=== PATIENT | male | born 1970 | race Caucasian/White ===

== ENCOUNTER → 2018-04-14 | Outpatient (CLI) | payer BC ==
[2018-04-14] MEDS: CATHETER FLUSH 10 ML SYR IV PRN ×2 (11:54→11:55)
--- NOTE | 2018-04-14 19:09 | Diagnostic Imaging Report ---
INDICATION: Right upper quadrant pain. TECHNIQUE: Patient was administered 5.4 mCi technetium 99m Choletec and imaging over the abdomen was performed. At one hour, patient ingested 8 ounces of Ensure and a gallbladder ejection fraction was calculated. FINDINGS: There is homogeneous uptake of activity throughout the liver. Prompt excretion of activity into the gallbladder and common duct is seen. There is normal passage of activity into the small bowel. Gallbladder ejection fraction is normal at 58%. IMPRESSION: Normal HIDA scan and gallbladder ejection fraction. Dictated by: Dictated on workstation # [id number]
== END ==
LOC: CARD 11:35 → EDUNIT# 12:00
PROVIDERS: ATTEND Surgery
DX: R10.11 Right upper quadrant pain (principal)
CPT/HCPCS: 78227

== ENCOUNTER 2018-05-18 15:52 | Outpatient (CLI) | payer BC ==
[~2018-05-18] VITALS: Ht 165.1 cm; Wt 108.0 kg
[2018-05-19] MEDS ORDERED: LEVO25TA5 PO (08:45)
[2018-05-19] MEDS ORDERED: NF-ACI30T PO (08:45)
[2018-05-19] MEDS ORDERED: LISI1TAB8 PO (08:45)
[2018-05-19] MEDS ORDERED: MELO15TA39 PO (08:45)
== END 2018-05-18 16:20 | disposition home or self-care (01) ==
LOC: PREOP 15:52
PROVIDERS: ATTEND Surgery
DX: Z01.818 Encounter for other preprocedural examination (principal)

== ENCOUNTER 2018-05-19 09:02 | Day surgery (SDC) | payer BC ==
[~2018-05-19] VITALS: Ht 165.1 cm; Wt 108.0 kg
[2018-05-19] VITALS (7 sets, daily range): BP systolic 116–128; BP diastolic 71–100
[~2018-05-19 09:02] MED LIST: LEVO25TA5 PO; LISI1TAB8 PO; MELO15TA39 PO; NF-ACI30T PO
[2018-05-19] MEDS ORDERED: ceFAZolin 1,000 MG/10 ML (ANCEF) VIAL ONE (09:18)
[2018-05-19] MEDS ORDERED: NS (IVPB) 50 ML ONE (09:19)
--- NOTE | 2018-05-19 09:29 | Progress Note-Pre Operative ---
Pre-Operative Progress Note H&P Reviewed The H&P was reviewed, patient examined and no changes noted. Date Seen by Provider: May 19, 2018 Time Seen by Provider: 09:20 Date H&P Reviewed: May 19, 2018 Time H&P Reviewed: :20 Pre-Operative Diagnosis: perianal pain/mass/drainage JODY GONZALEZ MD May 19, 2018 9:29 am
[2018-05-19] MEDS ORDERED: ACETAMINOPHEN 325 MG TABLET PO PRN (09:30)
[2018-05-19] MEDS ORDERED: morphine INJ 10 MG/ML 1ML (SYR OR VIAL) IVP PRN (09:30)
[2018-05-19] MEDS ORDERED: ONDANSETRON 4 MG/2 ML (SDV) Z0FRAN IVP PRN ×2 (09:30→13:30)
--- OUTSIDE RECORDS SUMMARY | 2018-05-19 09:36 | XMS REPORT ---
Author Author BIRGIT ROSARIO [facility] Address [address] [place] [address] Care Team Providers Care Electrolysis Needle Operator Name Role Phone JOSSIE ROSARIOTA Unavailable PROBLEMS Type Condition ICD9-CM Code [id number] Code Onset Dates Condition Status SNOMED Code Problem Essential hypertension I10 Active 76847428 Problem Pre-diabetes R73.09 Active 595910810 Problem Gastroesophageal reflux disease without esophagitis K21.9 Active 765991566 Problem Acquired hypothyroidism E03.9 Active 338193181 ALLERGIES No Information ENCOUNTERS Encounter Location Date Diagnosis [facility] [address] [id number] May, [facility] [address] [address] Mar, [facility] [address] [address] Mar, Pre-diabetes R73.09 and Essential hypertension I10 [facility] [address] [address] Mar, Anal fissure K60.2 ; Pre-diabetes R73.09 ; Acquired hypothyroidism E03.9 ; Gastroesophageal reflux disease without esophagitis K21.9 and Essential hypertension I10 [facility] [address] [id number] Nov, Dental examination Z01.20 [facility] [address] [address] Oct, Acute sinusitis, recurrence not specified, unspecified location J01.90 ; Cough R05 ; Nasal sinus congestion R09.81 ; Seasonal allergic rhinitis, unspecified trigger J30.2 and Post-nasal drainage R09.82 [facility] [id number] [place] [address]9- 0941 13 Sep, 2017 Acquired hypothyroidism E03.9 ; Pre-diabetes R73.09 ; Essential hypertension I10 ; Gastroesophageal reflux disease without esophagitis K21.9 and Long-term use of high-risk medication Z79.899 [facility] [address] [address] Jul, Viral gastroenteritis A08.4 [facility] [address] [id number] May, Encounter for dental examination Z01.20 [facility] [address] [address] 17 Dec, 2016 Essential hypertension I10 and Acquired hypothyroidism E03.9 [facility] [address] [address] December, Acquired hypothyroidism E03.9 ; General medical exam Z00.00 and Essential hypertension I10 [facility] [address] [address] Nov, Acquired hypothyroidism E03.9 ; Pre-diabetes R73.09 ; Essential hypertension I10 ; Skin lesions L98.9 and General medical exam Z00.00 [facility] [id number] [place] [id number] Oct, Encounter for dental examination Z01.20 [facility] [address] [address]- [address] Oct, Bronchitis J40 [facility] [address] [address] Oct, Sore throat J02.9 and Strep pharyngitis J02.0 [facility] [address] [address] Aug, [facility] [address] [address] Jul, Acquired hypothyroidism E03.9 ; Pre-diabetes R73.09 ; Essential hypertension I10 and Vertigo R42 [facility] [id number] [place] [address] Jun, Vertigo R42 [facility] [address] [id number] 28 Apr, 2016 Dental examination Z01.20 [facility] [address] [address] 13 Apr, 2016 Acquired hypothyroidism E03.9 ; Pre-diabetes R73.09 and Fatigue, unspecified type R53.83 [place] [address] [address] Mar, [facility] [address] [address]- [address] Mar, Dysthymia F34.1 [facility] [address] [address]- 6[address] Feb, Rectal bleeding K62.5 and Dysthymia F34.1 [facility] [address] 6[address]- 28[address] December, Acquired hypothyroidism E03.9 ; Pre-diabetes R73.09 ; Gastroesophageal reflux disease without esophagitis K21.9 and Elevated blood pressure I10 [facility] [id number] [place] [address] 26936- 5425 December, Acute labyrinthitis, unspecified laterality H83.09 [facility] [address] [address]- [address] December, Hypothyroidism 244.9 [facility] [address] [id number] 17 Oct, 2015 Encounter for dental examination Z01.20 [facility] [address] 6[address]- [address]64 Sep, [facility] [address] [address]- 25[address] Aug, [facility] [address] [place] [address] 992023- 3917 Jun, [facility] [id number] [place] [address] [id number] Jun, Dental examination V72.2 [facility] [id number] [place] [address] 66615- 5446 Jun, Hypothyroidism 244.9 [facility] [id number] [place] [address] 91226- 2926 May, Hypothyroidism 244.9 [facility] [address] [id number] May, Encounter for dental examination Z01.20 [facility] [id number] [place] [address] 285973- 2461 Mar, Hypothyroidism 244.9 and Prediabetes 790.29 [facility] [id number] [place] [address] [id number] Mar, Dental examination V72.2 [facility] [id number] [place] [address] [id number] Mar, Dental examination V72.2 [facility] [id number] [place] [address] 90693- 6567 Mar, [facility] [id number] [place] [address] 23552- 6737 Mar, [facility] [id number] [place] [address] 758423- 4941 Mar, [facility] [id number] [place] [address] 723782- 1169 Feb, Hypothyroidism 244.9 [facility] [id number] [place] [address] 027932- 1399 Feb, [facility] [id number] [place] [address] 85040- 6735 Feb, Hypothyroidism 244.9 and Other malaise and fatigue 780.79 [facility] [id number] [place] [address] 99390- 4110 Feb, [facility] [id number] [place] [address] 67390- 5845 Feb, Pre-diabetes 790.29 ; Hypothyroidism 244.9 ; Family history of cardiac disorder V17.49 and Elevated blood pressure 796.2 [facility] [id number] [place] [address] 65704- 0032 Feb, [facility] [id number] [place] [address] [id number] Jan, Dental examination V72.2 [facility] [id number] [place] [address] 06747- 3105 Nov, [facility] [id number] [place] [address] 90176- 0708 Nov, [facility] [id number] [place] [address] 98234- 5363 Oct, [facility] [id number] [place] [address] 86420- 4570 Oct, [facility] [id number] [place] [address] 35237- 6517 Aug, [facility] [id number] [place] [address] 53998- 1999 Aug, [facility] [id number] [place] [address] 21376- 6522 Aug, [facility] [id number] [place] [address] 89077- 4562 Aug, [facility] [id number] [place] [address] 90036- 7650 Jun, [facility] [id number] [place] [address] 27727- 8564 Jun, [facility] [address] [id number] [place] [address]- 1267 Apr, [facility] [address] [id number] [place] [address]- 6925 Apr, [facility] [address] [id number] [place] [address]- 0066 Mar, [facility] [address] [id number] [place] [address]- 5[address] Mar, [facility] [address] [id number] [place] [address]- 4097 December, [facility] [address] [id number] [place] [address]- 7915 December, [facility] [address] [facility] [id number] [place] [address]- 9325 December, [facility] [address] [facility] [id number], [place] [address] 2705 December, [facility] [address] [facility] [id number] [place] [address]- 3796 December, [facility] [address] [facility] [id number], [place] [address]- 7637 December, [facility] [address] [facility] [id number], [place] [address]- 3547 Sep, [facility] [address] [id number], [place] [address]- 6749 Jul, [facility] [address] [facility] [id number], [place] [address]- 6076 Jul, [facility] [address] [facility] [id number], [place] [address] 8485 Jul, [facility] [address] [facility] [id number], [place] [address]- 1145 Jul, IMMUNIZATIONS No Known Immunizations SOCIAL HISTORY Never Assessed REASON FOR VISIT Returned call PLAN OF CARE VITAL SIGNS MEDICATIONS Unknown Medications RESULTS No Results PROCEDURES No Known procedures INSTRUCTIONS MEDICATIONS ADMINISTERED No Known Medications MEDICAL (GENERAL) HISTORY Type Description Date Medical History Elevated Blood Pressure Medical History Hypothyroidism Medical History Prediabetes Medical History Esophageal Reflux Medical History Colonosocpy Kido
--- OUTSIDE RECORDS SUMMARY | 2018-05-19 09:37 | XMS REPORT ---
Author Author HUSSEIN DILALO [facility] Address [address] [place] [address] Phone Unavailable Care Team Providers Care Chemical Processing Supervisor Name Role Phone HUSSEIN DIALLO Unavailable Unavailable PROBLEMS Type Condition ICD9-CM Code NBH78-ZS Code Onset Dates Condition Status SNOMED Code Problem Essential hypertension I10 Active 00564515 Problem Pre-diabetes R73.09 Active 034147537 Problem Gastroesophageal reflux disease without esophagitis K21.9 Active 034879064 Problem Acquired hypothyroidism E03.9 Active 073615748 ALLERGIES No Known Allergies ENCOUNTERS Encounter Location Date Diagnosis [facility] [address] [id number] May, [facility] [address] [id number] Nov, Dental examination Z01.20 [facility] [id number] [place] [address] Oct, Acute sinusitis, recurrence not specified, unspecified location J01.90 ; Cough R05 ; Nasal sinus congestion R09.81 ; Seasonal allergic rhinitis, unspecified trigger J30.2 and Post-nasal drainage R09.82 [facility] [id number] [place] [address] 03000- 0827 Sep, Acquired hypothyroidism E03.9 ; Pre-diabetes R73.09 ; Essential hypertension I10 ; Gastroesophageal reflux disease without esophagitis K21.9 and Long-term use of high-risk medication Z79.899 [facility] [id number] [place] [address]608 Jul, Viral gastroenteritis A08.4 [facility] [id number] [place] [address] [id number] May, Encounter for dental examination Z01.20 [facility] [id number] [place] [address] 66216- 8974 17 Dec, 2016 Essential hypertension I10 and Acquired hypothyroidism E03.9 [facility] [address] [address]- 8215 December, Acquired hypothyroidism E03.9 ; General medical exam Z00.00 and Essential hypertension I10 [place] [address] [address]- [address]39 Nov, Acquired hypothyroidism E03.9 ; Pre-diabetes R73.09 ; Essential hypertension I10 ; Skin lesions L98.9 and General medical exam Z00.00 [facility] [address] [id number] Oct, Encounter for dental examination Z01.20 [facility] [id number] [place] [address] 21288- 6939 08 Oct, 2016 Bronchitis J40 [facility] [address] [address]393 Oct, Sore throat J02.9 and Strep pharyngitis J02.0 [facility] [id number] [place] [address] 93429- 8875 Aug, [facility] [id number] [place] [address] 63192- 0056 Jul, Acquired hypothyroidism E03.9 ; Pre-diabetes R73.09 ; Essential hypertension I10 and Vertigo R42 [facility] [id number] [place] [address]177 -4720 Jun, Vertigo R42 [facility] [id number] [place] [address] [id number] Apr, Dental examination Z01.20 [facility] [id number] [place] [address] 22039- 0182 13 Apr, 2016 Acquired hypothyroidism E03.9 ; Pre-diabetes R73.09 and Fatigue, unspecified type R53.83 [facility] [id number] [place] [address] 04630- 0723 Mar, [place] [address] [address]50- 8738 Mar, Dysthymia F34.1 [place] [id number] [place] [address] 78110- 6064 Feb, Rectal bleeding K62.5 and Dysthymia F34.1 [place] [address] 32003- 6027 December, Acquired hypothyroidism E03.9 ; Pre-diabetes R73.09 ; Gastroesophageal reflux disease without esophagitis K21.9 and Elevated blood pressure I10 [place] [address] 14580- 9010 December, Acute labyrinthitis, unspecified laterality H83.09 [place] [address] 18517- 2130 December, Hypothyroidism 244.9 [facility] [address] [id number] Oct, Encounter for dental examination Z01.20 [place] [id number] [place] [address] 20095- 5568 Sep, [place] [id number] [place] [address] 57383- 4602 Aug, [place] [id number] [place] [address] 85439- 2288 Jun, [facility] [address] [id number] Jun, Dental examination V72.2 [place] [address] 33893- 9806 Jun, Hypothyroidism 244.9 [facility] [id number] [place] [address] 44655- 0354 May, Hypothyroidism 244.9 [facility] [address] [place] [address] [id number] May, Encounter for dental examination Z01.20 [facility] [address] 63542- 0287 Mar, Hypothyroidism 244.9 and Prediabetes 790.29 [facility] [address] [place] [address] [id number] Mar, Dental examination V72.2 [facility] [id number] [place] [address] [id number] Mar, Dental examination V72.2 [facility] [address] 74794- 2246 Mar, [facility] [id number] [place] [address] 83047- 6813 Mar, [facility] [id number] [place] [address] 14739- 8040 Mar, [facility] [id number] [place] [address] 70181- 4668 Feb, Hypothyroidism 244.9 [facility] [id number] [place] [address] 41503- 6163 Feb, [facility] [id number] [place] [address] 87887- 5495 Feb, Hypothyroidism 244.9 and Other malaise and fatigue 780.79 [facility] [id number] [place] [address] 78810- 8175 Feb, [facility] [id number] [place] [address] 69736- 6640 Feb, Pre-diabetes 790.29 ; Hypothyroidism 244.9 ; Family history of cardiac disorder V17.49 and Elevated blood pressure 796.2 [facility] [address] [place] [address] 60048- 0316 Feb, [facility] [id number] [place] [address] [place] [id number] Jan, Dental examination V72.2 [facility] [address] [id number] [place] [address]- 7559 Nov, [facility] [place] [facility] [address] [id number] [place] [address]- 3643 Nov, [facility] [place] [facility] [address] [id number] [place] [address]- 9716 Oct, [facility] [place] [facility] [address] [id number] [place] [address]- 9028 Oct, [facility] [place] [facility] [address] [id number] [place] [address]- 4586 Aug, [facility] [place] [facility] [address] [id number] [place] [address]- 6935 Aug, [facility] [address] [id number] [place] 6964 Aug, [facility] [place] [facility] [address] [id number], [place] [address]- 5791 Aug, [facility] [place] [facility] [address] [id number] [place] [address]- 9977 Jun, [facility] [place] [facility] [address] [id number][place]- 5878 Jun, [facility] [place] [facility] [address] [id number] [place] [address]- 4206 Apr, [facility] [place] [facility] [address] [id number], [place] [address]- 7716 Apr, [facility] [place] [facility] [address] [id number] [place] [address]- 9974 Mar, [facility] [place] [facility] [address] [id number] [place] [address]- 8976 Mar, [facility] [place] [facility] [address] [id number], [place] [address]- 0827 December, [facility] [address] [facility] [id number], [place] [address] 2546 December, [facility] [address] [id number], [place] [address]- 1616 December, [facility] [address] [id number], [place] [address]- 2546 December, [facility] [address], [place] [address] 2546 December, [facility] [address] [id number], [place] [address]- 8026 December, [facility] [address], [place] [address]- 0676 Sep, [facility] [address], [place] [address]- 3271 Jul, [facility] [address], [place] [address]- 4485 Jul, [facility] [address] [id number], [place] [address]- 6087 Jul, [facility] [address] [id number], [place] [address]- 3081 Jul, IMMUNIZATIONS No Known Immunizations SOCIAL HISTORY Never Assessed REASON FOR VISIT 6 mo recall PLAN OF CARE Activity Details Follow Up 6 Months Reason:perio,arianne,bw VITAL SIGNS Blood pressure systolic 107 mmHg 2017-11-09 Blood pressure diastolic 69 mmHg 2017-11-09 MEDICATIONS Medication Instructions Dosage Frequency Start Date End Date Duration Status Meloxicam 7.5 MG TAKE ONE TABLET BY MOUTH TWICE DAILY 30 Active Flonase Allergy Relief 50 MCG/ACT Nasally Once a day 1 spray in each nostril 24h Oct, 07 days Active Levoxyl 25 MCG Orally Once a day 1 tablet 24h 30 Not-Taking Meclizine HCl 25 MG Orally tid prn vertigo 1 December, Not- Taking Lisinopril-Hydrochlorothiazide 10-12.5 MG Orally Once a day 1 tablet 24h 30 Active Levoxyl 25 MCG Orally Once a day 1 tablet 24h 30 Active Aciphex 20 mg Orally Once a day 1 tablet 24h 30 Active Lisinopril-Hydrochlorothiazide 10-12.5 MG Orally Once a day 1 tablet 24h 30 day(s) Not-Taking RESULTS No Results PROCEDURES Procedure Date Ordered Result Body Site Periodontal maint procedures November 09, 2017 INSTRUCTIONS MEDICATIONS ADMINISTERED No Known Medications MEDICAL (GENERAL) HISTORY Type Description Date Medical History Elevated Blood Pressure Medical History Hypothyroidism Medical History Prediabetes Medical History Esophageal Reflux Medical History Colonosocpy Brenda
--- OUTSIDE RECORDS SUMMARY | 2018-05-19 09:37 | XMS REPORT ---
Author Author JESS HUDSON [facility] eClinical[employer] Address Unknown Phone Unavailable Care Team Providers Care Laborer Hide [employer] Name Role Phone JESS HUDSON CP Unavailable Allergies, Adverse Reactions, Alerts Substance Reaction Event Type N.K.D.A. Info Not Available Non Drug Allergy Problems Problem Type Condition Code Onset Dates Condition Status Problem Unspecified myalgia and myositis 729.1 Active Problem Other malaise and fatigue 780.79 Active Problem Screening examination for venereal disease V74.5 Active Assessment Encounter for dental examination Z01.20 Active Problem Esophageal reflux 530.81 Active Problem Pain in joint, lower leg 719.46 Active Medications Medication Code System Code Instructions Start Date End Date Status Dosage Aciphex [facility] [address]-59 20 MG Orally Once a day 1 tablet Levoxyl [facility] [address]-56 25 MCG Orally Once a day March 08, 2015 1 tablet Procedures Procedure Coding System Code Date CROWN - PORCELAIN/CERAMIC SUBSTRATE CPT-4 D2740 Jun 06, 2015 Vital Signs Date/Time: Jun 06, 2015 Blood Pressure Diastolic 93 mmHg Blood Pressure Systolic 129 mmHg Height 65 in Results No Known Results Summary Purpose eClinicalWorks Submission
--- OUTSIDE RECORDS SUMMARY | 2018-05-19 09:37 | XMS REPORT ---
Author Author BIRGIT ROSARIO [facility] Address [address] [place] [address] Care Team Providers Care Training And Development Professional Name Role Phone JOSSIE ROSARIOTA Unavailable PROBLEMS Type Condition ICD9-CM Code LXZ61-NA Code Onset Dates Condition Status SNOMED Code Problem Essential hypertension I10 Active 66192812 Problem Pre-diabetes R73.09 Active 081410419 Problem Gastroesophageal reflux disease without esophagitis K21.9 Active 049405895 Problem Acquired hypothyroidism E03.9 Active [id number] ALLERGIES No Information ENCOUNTERS Encounter Location Date Diagnosis [facility] [address] [id number] May, [facility] [address] [address] Mar, [facility] [address] [address] Mar, Pre-diabetes R73.09 and Essential hypertension I10 [facility] [address] 24[address]- 3413 Mar, Anal fissure K60.2 ; Pre-diabetes R73.09 ; Acquired hypothyroidism E03.9 ; Gastroesophageal reflux disease without esophagitis K21.9 and Essential hypertension I10 [facility] [address] [id number] Nov, Dental examination Z01.20 [facility] [address] [address] Oct, Acute sinusitis, recurrence not specified, unspecified location J01.90 ; Cough R05 ; Nasal sinus congestion R09.81 ; Seasonal allergic rhinitis, unspecified trigger J30.2 and Post-nasal drainage R09.82 [facility] [id number] [place] [address] 92633- 7723 13 Sep, 2017 Acquired hypothyroidism E03.9 ; Pre-diabetes R73.09 ; Essential hypertension I10 ; Gastroesophageal reflux disease without esophagitis K21.9 and Long-term use of high-risk medication Z79.899 [facility] [address] [address] Jul, Viral gastroenteritis A08.4 [facility] [address] [id number] May, Encounter for dental examination Z01.20 [facility] [address] [address]- [address] 17 Dec, 2016 Essential hypertension I10 and Acquired hypothyroidism E03.9 [facility] [address] [address]44- 0865 December, Acquired hypothyroidism E03.9 ; General medical exam Z00.00 and Essential hypertension I10 [facility] [address] 47[address]- 9431 Nov, Acquired hypothyroidism E03.9 ; Pre-diabetes R73.09 ; Essential hypertension I10 ; Skin lesions L98.9 and General medical exam Z00.00 [facility] [id number] [place] [address] [id number] Oct, Encounter for dental examination Z01.20 [facility] [address] [address]- [address] Oct, Bronchitis J40 [facility] [address] [address] Oct, Sore throat J02.9 and Strep pharyngitis J02.0 [facility] [address] 9[address]14- 0682 Aug, [facility] [address] 21695- 4814 Jul, Acquired hypothyroidism E03.9 ; Pre-diabetes R73.09 ; Essential hypertension I10 and Vertigo R42 [facility] [id number] [place] [address] -0612 Jun, Vertigo R42 [facility] [address] [id number] 28 Apr, 2016 Dental examination Z01.20 [facility] [address] [address]- [address] 13 Apr, 2016 Acquired hypothyroidism E03.9 ; Pre-diabetes R73.09 and Fatigue, unspecified type R53.83 [place] [address] [address]- 2506 Mar, [facility] [address] [address] Mar, Dysthymia F34.1 [facility] [address] [address]- 9628 Feb, Rectal bleeding K62.5 and Dysthymia F34.1 [facility] [address] 29166- 8478 December, Acquired hypothyroidism E03.9 ; Pre-diabetes R73.09 ; Gastroesophageal reflux disease without esophagitis K21.9 and Elevated blood pressure I10 [facility] [id number] [place] [address] 06757- 9466 December, Acute labyrinthitis, unspecified laterality H83.09 [facility] [address] 72486- 8521 December, Hypothyroidism 244.9 [facility] [address] [id number] 17 Oct, 2015 Encounter for dental examination Z01.20 [facility] [address] 71335- 5784 Sep, [facility] [address] 76397- 2546 Aug, [facility] [address] [place] [address] 563526- 0205 Jun, [facility] [id number] [place] [address] [id number] Jun, Dental examination V72.2 [facility] [id number] [place] [address] 20391- 6216 Jun, Hypothyroidism 244.9 [facility] [id number] [place] [address] 37137- 5606 May, Hypothyroidism 244.9 [facility] [address] [id number] May, Encounter for dental examination Z01.20 [facility] [id number] [place] [address] 532226- 6047 Mar, Hypothyroidism 244.9 and Prediabetes 790.29 [facility] [id number] [place] [address] [id number] Mar, Dental examination V72.2 [facility] [id number] [place] [address] [id number] Mar, Dental examination V72.2 [facility] [id number] [place] [address] 44432- 0531 Mar, [facility] [id number] [place] [address] 78700- 0799 Mar, [facility] [id number] [place] [address] 620408- 4421 Mar, [facility] [id number] [place] [address] 167132- 0103 Feb, Hypothyroidism 244.9 [facility] [id number] [place] [address] 740093- 3149 Feb, [facility] [id number] [place] [address] 53296- 5431 Feb, Hypothyroidism 244.9 and Other malaise and fatigue 780.79 [facility] [id number] [place] [address] 21837- 0261 Feb, [facility] [id number] [place] [address] 64273- 7216 Feb, Pre-diabetes 790.29 ; Hypothyroidism 244.9 ; Family history of cardiac disorder V17.49 and Elevated blood pressure 796.2 [facility] [id number] [place] [address] 77568- 6809 Feb, [facility] [id number] [place] [address] [id number] Jan, Dental examination V72.2 [facility] [id number] [place] [address] 67335- 9398 Nov, [facility] [id number] [place] [address] 81735- 1308 Nov, [facility] [id number] [place] [address] 69587- 0702 Oct, [facility] [id number] [place] [address] 88979- 4811 Oct, [facility] [id number] [place] [address] 10829- 2577 Aug, [facility] [id number] [place] [address] 15199- 7335 Aug, [facility] [id number] [place] [address] 57273- 2577 Aug, [facility] [id number] [place] [address] 35908- 7591 Aug, [facility] [id number] [place] [address] 25094- 9140 Jun, [facility] [id number] [place] [address] 52970- 8507 Jun, [facility] [address] [id number] [place] [address]- 8705 Apr, [facility] [address] [id number] [place] [address]- 9468 Apr, [facility] [address] [id number] [place] [address]- 2972 Mar, [facility] [address] [id number] [place] [address]- 9743 Mar, [facility] [address] [id number] [place] [address]- 2632 December, [facility] [address] [id number] [place] [address]- 8800 December, [facility] [address] [id number] [place] [address] December, [facility] [address] [facility] [id number] [place] [address]- 3790 December, [facility] [address] [id number] [place] [address]- 3985 December, [facility] [address] [facility] [id number] [place] [address]- 8376 December, [facility] [address] [facility] [id number] [place] [address]- 7705 Sep, [facility] [address] [id number], [place] [address] 3855 Jul, [facility] [address] [id number] [address] Jul, [facility] [address] [id number] [address]- 9[address] Jul, [facility] [address] [facility] [id number], [place] [address]- 1172 Jul, IMMUNIZATIONS No Known Immunizations SOCIAL HISTORY Never Assessed REASON FOR VISIT Lab (walk-in) PLAN OF CARE Activity Details Pending Test A1C (IN HOUSE) VITAL SIGNS MEDICATIONS Unknown Medications RESULTS No Results PROCEDURES Procedure Date Ordered Result Body Site GLYCATED HEMOGLOBIN TEST Mar 31, 2018 LIPID PANEL Mar 31, 2018 INSTRUCTIONS MEDICATIONS ADMINISTERED No Known Medications MEDICAL (GENERAL) HISTORY Type Description Date Medical History Elevated Blood Pressure Medical History Hypothyroidism Medical History Prediabetes Medical History Esophageal Reflux Medical History Colonosocpy Brenda
--- OUTSIDE RECORDS SUMMARY | 2018-05-19 09:37 | XMS REPORT ---
Author Author BIRGIT ROSARIO [facility] Address [address] [place] [address] Care Team Providers Care Salesperson Meats Name Role Phone JOSSIE ROSARIOTA Unavailable PROBLEMS Type Condition ICD9-CM Code LYU12-HE Code Onset Dates Condition Status SNOMED Code Problem Essential hypertension I10 Active 17660432 Problem Pre-diabetes R73.09 Active 013546504 Problem Gastroesophageal reflux disease without esophagitis K21.9 Active 622224253 Problem Acquired hypothyroidism E03.9 Active 363336334 ALLERGIES No Known Allergies ENCOUNTERS Encounter Location Date Diagnosis [facility] [address] [id number] May, [facility] [address] [address] Mar, [facility] [address] 43010- 9047 Mar, Pre-diabetes R73.09 and Essential hypertension I10 [facility] [address] [place] [address] 78797- 9718 Mar, Anal fissure K60.2 ; Pre-diabetes R73.09 ; Acquired hypothyroidism E03.9 ; Gastroesophageal reflux disease without esophagitis K21.9 and Essential hypertension I10 [facility] [address] [id number] Nov, 2017 Dental examination Z01.20 [facility] [address] [address] Oct, Acute sinusitis, recurrence not specified, unspecified location J01.90 ; Cough R05 ; Nasal sinus congestion R09.81 ; Seasonal allergic rhinitis, unspecified trigger J30.2 and Post-nasal drainage R09.82 [facility] [id number] [place] [address] 82115- 5199 13 Sep, 2017 Acquired hypothyroidism E03.9 ; Pre-diabetes R73.09 ; Essential hypertension I10 ; Gastroesophageal reflux disease without esophagitis K21.9 and Long-term use of high-risk medication Z79.899 [facility] [address] [address] Jul, Viral gastroenteritis A08.4 [facility] [address] [id number] May, Encounter for dental examination Z01.20 [place] [address] 42995- 8154 17 Dec, 2016 Essential hypertension I10 and Acquired hypothyroidism E03.9 [facility] [address] 43141- 9395 December, Acquired hypothyroidism E03.9 ; General medical exam Z00.00 and Essential hypertension I10 [facility] [address] 74259- 2165 Nov, Acquired hypothyroidism E03.9 ; Pre-diabetes R73.09 ; Essential hypertension I10 ; Skin lesions L98.9 and General medical exam Z00.00 [facility] [id number] [place] [address] [id number] Oct, Encounter for dental examination Z01.20 [facility] [id number] [place] [address] 95934- 4349 Oct, Bronchitis J40 [facility] [address] [address]23 [address]39 Oct, Sore throat J02.9 and Strep pharyngitis J02.0 [facility] [address] 47564- 2197 Aug, [facility] [address] 37732- 7806 Jul, Acquired hypothyroidism E03.9 ; Pre-diabetes R73.09 ; Essential hypertension I10 and Vertigo R42 [facility] [id number] [place] [address]309 -1595 Jun, Vertigo R42 [facility] [address] [id number] 28 Apr, 2016 Dental examination Z01.20 [facility] [address] 57170- 1922 13 Apr, 2016 Acquired hypothyroidism E03.9 ; Pre-diabetes R73.09 and Fatigue, unspecified type R53.83 [place] [address] 47447- 6025 Mar, [facility] [address] 66649- 3803 Mar, Dysthymia F34.1 [facility] [address] 10735- 8726 Feb, Rectal bleeding K62.5 and Dysthymia F34.1 [facility] [address] 48803- 9800 December, Acquired hypothyroidism E03.9 ; Pre-diabetes R73.09 ; Gastroesophageal reflux disease without esophagitis K21.9 and Elevated blood pressure I10 [facility] [address] 21846- 6865 December, Acute labyrinthitis, unspecified laterality H83.09 [facility] [address] 95777- 9529 December, Hypothyroidism 244.9 [facility] [address] [id number] Oct, 2015 Encounter for dental examination Z01.20 [facility] [address] 97374- 5106 Sep, [facility] [address] 30032- 2606 Aug, [facility] [address] [place] [address] 42350- 9786 Jun, [facility] [id number] [place] [address] [id number] Jun, Dental examination V72.2 [facility] [id number] [place] [address] 49005- 7856 Jun, Hypothyroidism 244.9 [facility] [id number] [place] [address] 25089- 7816 May, Hypothyroidism 244.9 [facility] [address] [id number] May, Encounter for dental examination Z01.20 [facility] [id number] [place] [address] 543950- 3594 Mar, Hypothyroidism 244.9 and Prediabetes 790.29 [facility] [id number] [place] [address] [id number] Mar, Dental examination V72.2 [facility] [id number] [place] [address] [id number] Mar, Dental examination V72.2 [facility] [address] [place] [address] 80075- 0162 Mar, [facility] [address] [place] [address] 45131- 6563 Mar, [facility] [id number] [place] [address] 55077- 6886 Mar, [facility] [id number] [place] [address] 348578- 5142 Feb, Hypothyroidism 244.9 [facility] [address] [place] [address] 515543- 7636 Feb, [facility] [address] [place] [address] 944050- 0845 Feb, Hypothyroidism 244.9 and Other malaise and fatigue 780.79 [facility] [id number] [place] [address] 13687- 8127 Feb, [facility] [id number] [place] [address] 94638- 4614 Feb, Pre-diabetes 790.29 ; Hypothyroidism 244.9 ; Family history of cardiac disorder V17.49 and Elevated blood pressure 796.2 [facility] [id number] [place] [address] 98633- 1281 Feb, [facility] [id number] [place] [address] [id number] Jan, Dental examination V72.2 [facility] [id number] [place] [address] 80039- 9392 Nov, [facility] [id number] [place] [address] 61045- 8390 Nov, [facility] [id number] [place] [address] 77802- 0973 Oct, [facility] [id number] [place] [address] 50036- 4722 Oct, [facility] [id number] [place] [address] 34839- 1008 Aug, [facility] [id number] [place] [address] 77215- 6699 Aug, [facility] [id number] [place] [address] 52120- 7240 Aug, [facility] [id number] [place] [address] 31837- 3001 Aug, [facility] [id number] [place] [address] 076432- 1525 Jun, [facility] [id number] [place] [address] 04605- 1793 Jun, [facility] [address] [id number] [place] [address]- 7781 Apr, [facility] [address] [id number] [place] [address]- 6037 Apr, [facility] [address] [facility] [id number] [place] [address]- 3793 Mar, [facility] [address] [id number] [place] [address]- 9840 Mar, [facility] [address] [id number] [place] [address]- 7195 December, [facility] [address] [id number] [place] [address]- 9337 December, [facility] [address] [facility] [id number] [place] [address]- 4025 December, [facility] [address] [facility] [id number] [place] [address]- 0999 December, [facility] [address] [facility] [id number] [place] [address]- 8625 December, [facility] [address] [facility] [id number] [place] [address]- 3061 December, [facility] [address] [facility] [id number] [place] [address]- 6029 Sep, [facility] [address] [facility] [id number] [address]- 7037 Jul, [facility] [address] [facility] [id number] [place] [address]- 5283 Jul, [facility] [address] [facility] [id number] [place] [address]- 6011 Jul, [facility] [address] [facility] [id number], [place] [address]- 2708 Jul, IMMUNIZATIONS No Known Immunizations SOCIAL HISTORY Never Assessed REASON FOR VISIT Transition of Care/constipation--tcuppettRN, Having rectal pain. Saw Dr. Brenda Santiago and was dx with anal fissures. Was prescribed a cream that isn't helping., -Pt received nitroglycerin 0.2% rectal ointment from Dr. Gutierrez PLAN OF CARE Activity Details Follow Up 3 months or as indicated by lab Reason:HTN VITAL SIGNS Height 65 in 2018-03-24 Weight 238.6 lbs 2018-03-24 Temperature 98.3 degrees Fahrenheit 2018-03-24 Heart Rate 88 bpm 2018-03-24 Respiratory Rate 20 2018-03-24 BMI 39.70 kg/m2 2018-03-24 Blood pressure systolic 108 mmHg 2018-03-24 Blood pressure diastolic 74 mmHg 2018-03-24 MEDICATIONS Medication Instructions Dosage Frequency Start Date End Date Duration Status Lidocaine 2 % Externally bid prn as directed Mar, Active Meloxicam 7.5 MG TAKE ONE TABLET BY MOUTH TWICE DAILY 30 Active Nitroglycerin 0.4 % Rectal 2 times a day as directed 12h Mar, 8 weeks Active Lisinopril-Hydrochlorothiazide 10-12.5 MG TAKE ONE TABLET BY MOUTH ONCE DAILY Active Levoxyl 25 MCG TAKE ONE TABLET BY MOUTH ONCE DAILY Active Aciphex 20 mg Orally Once a day 1 tablet 24h Active RESULTS Name Result Date Reference Range A1C (IN HOUSE) 2018-03-24 A1C IN HOUSE 6.1 4.3 - 5.6 % Previous A1c 5.7 Lot [id number] Exp date Oct 2019 TSH 2018-03-24 TSH 3.03 0.40-4.50 PROCEDURES Procedure Date Ordered Result Body Site ASSAY THYROID STIM HORMONE Mar 24, 2018 VENIPUNCT, ROUTINE* Mar 24, 2018 INSTRUCTIONS MEDICATIONS ADMINISTERED No Known Medications MEDICAL (GENERAL) HISTORY Type Description Date Medical History Elevated Blood Pressure Medical History Hypothyroidism Medical History Prediabetes Medical History Esophageal Reflux Medical History Colonosocpy Brenda
--- OUTSIDE RECORDS SUMMARY | 2018-05-19 09:37 | XMS REPORT ---
Author Author SHIV HOUSTON Organization [facility] Address [address] [place] [address] Care Team Providers Care Cook Room Supervisor Name Role Phone SHIV HOUSTON Unavailable PROBLEMS Type Condition ICD9-CM Code HYL82-QR Code Onset Dates Condition Status SNOMED Code Problem Essential hypertension I10 Active 97060063 Problem Pre-diabetes R73.09 Active 813104263 Problem Gastroesophageal reflux disease without esophagitis K21.9 Active 078648105 Problem Acquired hypothyroidism E03.9 Active 265674351 ALLERGIES No Known Allergies ENCOUNTERS Encounter Location Date Diagnosis [facility] [address] [id number] May, [facility] [address] [id number] Nov, Dental examination Z01.20 [facility] [address] [place] [phone] Oct, Acute sinusitis, recurrence not specified, unspecified location J01.90 ; Cough R05 ; Nasal sinus congestion R09.81 ; Seasonal allergic rhinitis, unspecified trigger J30.2 and Post-nasal drainage R09.82 [facility] [address] [place] [address]164 Sep, Acquired hypothyroidism E03.9 ; Pre-diabetes R73.09 ; Essential hypertension I10 ; Gastroesophageal reflux disease without esophagitis K21.9 and Long-term use of high-risk medication Z79.899 [facility] [address] [place] [phone] Jul, Viral gastroenteritis A08.4 [facility] [address] [id number] May, Encounter for dental examination Z01.20 [facility] [id number] [place] [address]- 1972 17 Dec, 2016 Essential hypertension I10 and Acquired hypothyroidism E03.9 [facility] [id number] [place] [address] 94706- 4298 December, Acquired hypothyroidism E03.9 ; General medical exam Z00.00 and Essential hypertension I10 [facility] [address] [address] Nov, Acquired hypothyroidism E03.9 ; Pre-diabetes R73.09 ; Essential hypertension I10 ; Skin lesions L98.9 and General medical exam Z00.00 [facility] [address] [id number] Oct, Encounter for dental examination Z01.20 [facility] [address] [address] 08 Oct, 2016 Bronchitis J40 [facility] [id number] [place] [phone] Oct, Sore throat J02.9 and Strep pharyngitis J02.0 [facility] [id number] [place] [address] 80927- 8423 Aug, [facility] [id number] [place] [address] 80114- 2412 Jul, Acquired hypothyroidism E03.9 ; Pre-diabetes R73.09 ; Essential hypertension I10 and Vertigo R42 [facility] [id number] [place] [address]592 -[phone] Jun, Vertigo R42 [facility] [address] [id number] Apr, Dental examination Z01.20 [facility] [id number] [place] [address] 44203- 0162 13 Apr, 2016 Acquired hypothyroidism E03.9 ; Pre-diabetes R73.09 and Fatigue, unspecified type R53.83 [place] [id number] [place] [address]80- 8220 Mar, [place] [address] [address] Mar, Dysthymia F34.1 [place] [id number] [place] [address] 54893- 8065 Feb, Rectal bleeding K62.5 and Dysthymia F34.1 [place] [id number] [place] [address] 24112- 0648 December, Acquired hypothyroidism E03.9 ; Pre-diabetes R73.09 ; Gastroesophageal reflux disease without esophagitis K21.9 and Elevated blood pressure I10 [place] [id number] [place] [address] 26420- 7969 December, Acute labyrinthitis, unspecified laterality H83.09 [place] [address] 9[address]16- [address]24 December, Hypothyroidism 244.9 [facility] [address] [id number] Oct, Encounter for dental examination Z01.20 [place] [id number] [place] [address] 66147- 8196 Sep, [place] [address] [address]70- 5865 Aug, [place] [id number] [place] [address] 07408- 8300 Jun, [facility] [address] [id number] Jun, Dental examination V72.2 [place] [id number] [place] [address] 34804- 0136 Jun, Hypothyroidism 244.9 [place] [address] 74245- 1088 May, Hypothyroidism 244.9 [facility] [id number] [place] [phone] May, Encounter for dental examination Z01.20 [facility] [id number] [place] [address] [id number]- 2239 Mar, Hypothyroidism 244.9 and Prediabetes 790.29 [facility] [id number] [place] [phone] Mar, Dental examination V72.2 [facility] [id number] [place] [address] [phone] Mar, Dental examination V72.2 [facility] [address] 13972- 6526 Mar, [facility] [address] 97543- 9701 Mar, [facility] [address] 43669- 2590 Mar, [facility] [id number] [place] [address] 60496- 2071 Feb, Hypothyroidism 244.9 [facility] [id number] [place] [address] 80787- 6954 Feb, [facility] [id number] [place] [address] 15761- 6792 Feb, Hypothyroidism 244.9 and Other malaise and fatigue 780.79 [facility] [id number] [place] [address] 53668- 6693 Feb, [facility] [address] 42221- 4697 Feb, Pre-diabetes 790.29 ; Hypothyroidism 244.9 ; Family history of cardiac disorder V17.49 and Elevated blood pressure 796.2 [facility] [id number] [place] [address] 69636- 8918 Feb, [facility] [place] [facility] [address] [id number] [place] [id number] Jan, Dental examination V72.2 [facility] [place] [facility] [address] [id number] [place] [address]- 6[address] Nov, [facility] [place] [facility] [address] [id number] [place] Nov, [facility] [place] [facility] [address] [id number] [place] [address]- 6395 Oct, [facility] [place] [facility] [address] [id number] [place] Oct, [facility] [place] [facility] [address] [id number] [place] [address]- 4144 Aug, [facility] [place] [facility] [address] [id number] [place] [address]- 7336 Aug, [facility] [place] [facility] [address] [id number] [place] [address]- 4503 Aug, [facility] [place] [facility] [address] [id number] [place] [address]- 2127 Aug, [facility] [place] [facility] [address] [id number], [place] [address] Jun, [facility] [place] [facility] [address] [id number], [place] [address]- [address] Jun, [facility] [place] [facility] [address] [id number], [place] [address] Apr, [facility] [place] [facility] [address] [id number] [place] Apr, [facility] [place] [facility] [address] [id number] [place] [address]- 9522 Mar, [facility] [place] [facility] [address] [id number] [place] Mar, [facility] [place] [facility] [address] [id number], [place] [address] December, [facility] [address] [address] December, [facility] [id number] [address] December, [facility] [address] [address] December, [facility] [id number] [place] [address] 93150- 6853 December, [facility] [id number] [place] [address] 37662- 9263 December, [facility] [address] [place] [address] 64393- 8836 Sep, [facility] [id number] [place] [address] 801899- 0701 Jul, [facility] [address] Jul, [facility] [address] [place] [address] 90192- 3762 Jul, [facility] [address] [id number] [address] Jul, IMMUNIZATIONS Vaccine Route Administration Date Status SOLUMEDROL (UP TO 125 MG) IM Intramuscular October 29, 2017 Administered SOCIAL HISTORY Never Assessed REASON FOR VISIT congestion, cough, sinus pressure, right sided facial pain. been sick for 10 days. [email or web address] PLAN OF CARE Activity Details Follow Up prn Reason: VITAL SIGNS Height 65 in 2017-10-29 Weight 236.0 lbs 2017-10-29 Temperature 97.4 degrees Fahrenheit 2017-10-29 Heart Rate 84 bpm 2017-10-29 Respiratory Rate 20 2017-10-29 BMI 39.27 kg/m2 2017-10-29 Blood pressure systolic 124 mmHg 2017-10-29 Blood pressure diastolic 76 mmHg 2017-10-29 MEDICATIONS Medication Instructions Dosage Frequency Start Date End Date Duration Status Lisinopril-Hydrochlorothiazide 10-12.5 MG Orally Once a day 1 tablet 24h 30 Active Levoxyl 25 MCG Orally Once a day 1 tablet 24h 30 Active Levoxyl 25 MCG Orally Once a day 1 tablet 24h 30 Not-Taking Flonase Allergy Relief 50 MCG/ACT Nasally Once a day 1 spray in each nostril 24h Oct, 07 days Active Zithromax Z-Tayo 250 MG Orally Once a day 2 tablets on the first day, then 1 tablet daily for 4 days 24h Oct, Oct, 5 day(s) Active Aciphex 20 mg Orally Once a day 1 tablet 24h 30 Active Lisinopril-Hydrochlorothiazide 10-12.5 MG Orally Once a day 1 tablet 24h 30 day(s) Not-Taking Meclizine HCl 25 MG Orally tid prn vertigo 1 December, Not- Taking Meloxicam 7.5 MG TAKE ONE TABLET BY MOUTH TWICE DAILY 30 Active RESULTS No Results PROCEDURES Procedure Date Ordered Result Body Site SOLUMEDROL (UP TO 125 MG) October 29, 2017 THER/PROPH/DIAG INJ, SC/IM October 29, 2017 INSTRUCTIONS MEDICATIONS ADMINISTERED No Known Medications MEDICAL (GENERAL) HISTORY Type Description Date Medical History Elevated Blood Pressure Medical History Hypothyroidism Medical History Prediabetes Medical History Esophageal Reflux Medical History Colonosocpy Kido
--- OUTSIDE RECORDS SUMMARY | 2018-05-19 09:37 | XMS REPORT ---
Author Author CARTER STEPHENS Organization [employer] Address Unknown Phone Unavailable Care Team Providers Care Division Roadmaster Name Role Phone CARTER STEPHENS CP Unavailable Allergies No Known Allergies Problems Problem Type Condition ICD-9 Code Onset Dates Condition Status Problem Unspecified myalgia and myositis 729.1 Active Problem Other malaise and fatigue 780.79 Active Problem Screening examination for venereal disease V74.5 Active Problem Esophageal reflux 530.81 Active Problem Pain in joint, lower leg 719.46 Active Medications No Known Medications Vital Signs Date/Time: Mar 20, 2015 Blood Pressure Diastolic 88 mmHg Blood Pressure Systolic 140 mmHg Height 65 in Results No Known Results Summary Purpose [employer] Submission
--- OUTSIDE RECORDS SUMMARY | 2018-05-19 09:38 | XMS REPORT ---
Author Author CARTER STEPHENS Organization [employer] Address Unknown Phone Unavailable Care Team Providers Care Electrical Journeyman Name Role Phone CARTER STEPHENS CP Unavailable Allergies No Known Allergies Problems Problem Type Condition Code Onset Dates Condition Status Problem Unspecified myalgia and myositis 729.1 Active Problem Other malaise and fatigue 780.79 Active Problem Screening examination for venereal disease V74.5 Active Assessment Hypothyroidism 244.9 Active Problem Esophageal reflux 530.81 Active Problem Pain in joint, lower leg 719.46 Active Medications No Known Medications Procedures Procedure Coding System Code Date COMPREHEN METABOLIC PANEL CPT-4 07993 Jun 07, 2015 VENIPUNCT, ROUTINE* CPT-4 64931 Jun 07, 2015 ASSAY THYROID STIM HORMONE CPT-4 04818 Jun 07, 2015 Results Name Result Date Reference Range Unit Abnormality Flag ROUTINE VENIPUNCTURE Summary Purpose [employer] Submission
--- OUTSIDE RECORDS SUMMARY | 2018-05-19 09:38 | XMS REPORT ---
Author Author VINCENT DE SOUZA [employer] Address Unknown Phone Unavailable Care Team Providers Care Pastry Decorator Name Role Phone VINCENT DE SOUZA CP Unavailable Allergies, Adverse Reactions, Alerts Substance Reaction Event Type N.K.D.A. Info Not Available Non Drug Allergy Problems Problem Type Condition Code Onset Dates Condition Status Problem Screening examination for venereal disease V74.5 Active Problem Unspecified myalgia and myositis 729.1 Active Problem Encounter for dental examination Z01.20 Active Problem Pain in joint, lower leg 719.46 Active Assessment Encounter for dental examination Z01.20 Active Problem Other malaise and fatigue 780.79 Active Problem Esophageal reflux 530.81 Active Medications Medication Code System Code Instructions Start Date End Date Status Dosage Aciphex [facility] [address]-36 20 MG Orally Once a day 1 tablet Meloxicam [facility] [address]-28 7.5 MG Orally 2 times a day 1 tablet Levoxyl [facility] 96208655358 25 MCG Orally Once a day 1 tablet Procedures Procedure Coding System Code Date Periodontal maint procedures CPT-4 D4910 October 24, 2015 PERIODIC ORAL EXAMINATION CPT-4 D0120 October 24, 2015 Vital Signs Date/Time: October 24, 2015 Blood Pressure Diastolic 99 mmHg Blood Pressure Systolic 139 mmHg Cardiac Monitoring Heart Rate 81 bpm Results No Known Results Summary Purpose [employer] Submission
--- OUTSIDE RECORDS SUMMARY | 2018-05-19 09:38 | XMS REPORT ---
Author Author CARTER STEPHENS [facility] Address [address] [place] [address] Care Team Providers Care Shellacker Name Role Phone CARTER STEPHENS Unavailable PROBLEMS Type Condition ICD9-CM Code NBW12-RS Code Onset Dates Condition Status SNOMED Code Problem Essential hypertension I10 Active 31629573 Problem Fatigue, unspecified type R53.83 Active 69948552 Problem Gastroesophageal reflux disease without esophagitis K21.9 Active 050242986 Problem Elevated blood pressure I10 Active 47561182 Problem Acquired hypothyroidism E03.9 Active 446113860 Problem Pre-diabetes R73.09 Active 912243739 ALLERGIES Substance Reaction Event Type Date Status N.K.D.A. Unknown Non Drug Allergy Jul, Unknown SOCIAL HISTORY No smoking Hx information available PLAN OF CARE Activity Details Follow Up BP check 2 weeks office visit 3 months Reason:HTN pre diabetes VITAL SIGNS Height 65 in 2016-07-22 Weight 251.3 lbs 2016-07-22 Temperature 97.4 degrees Fahrenheit 2016-07-22 Heart Rate 92 bpm 2016-07-22 Respiratory Rate 18 2016-07-22 BMI 41.81 kg/m2 2016-07-22 Blood pressure systolic 144 mmHg 2016-07-22 Blood pressure diastolic 98 mmHg 2016-07-22 MEDICATIONS Medication Instructions Dosage Frequency Start Date End Date Duration Status Lisinopril-Hydrochlorothiazide 10-12.5 MG Orally Once a day 1 tablet 24h Jul, 30 day(s) Active Levoxyl 25 MCG Orally Once a day 1 tablet 24h 30 Active Meloxicam 7.5 MG TAKE ONE TABLET BY MOUTH TWICE DAILY 30 Active Aciphex 20 MG Orally Once a day 1 tablet 24h 30 days Active RESULTS Name Result Date Reference Range A1C (IN HOUSE) 2016-07-22 A1C IN HOUSE 5.8 4.3 - 5.6 % Previous A1c 5.5 Lot [id number] Exp date 04/2018 TSH 2016-07-22 TSH 3.260 0.450-4.500 CMP 2016-07-22 Glucose, Serum 92 65-99 BUN 11 6-24 Creatinine, Serum 0.97 0.76-1.27 eGFR If NonAfricn Am 94 >59 eGFR If Africn Am 109 >59 BUN/Creatinine Ratio 11 9-20 Sodium, Serum 142 134-144 Potassium, Serum 4.5 3.5-5.2 Chloride, Serum 104 96-106 Carbon Dioxide, Total 24 18-29 Calcium, Serum 9.3 8.7-10.2 Protein, Total, Serum 7.2 6.0-8.5 Albumin, Serum 4.3 3.5-5.5 Globulin, Total 2.9 1.5-4.5 A/G Ratio 1.5 1.1-2.5 Bilirubin, Total 0.4 0.0-1.2 Alkaline Phosphatase, S 67 39-117 AST (SGOT) 34 0-40 ALT (SGPT) 43 0-44 PROCEDURES Procedure Date Ordered Related Diagnosis Body Site ASSAY THYROID STIM HORMONE Jul 22, 2016 GLYCATED HEMOGLOBIN TEST Jul 22, 2016 VENIPUNCT, ROUTINE* Jul 22, 2016 COMPREHEN METABOLIC PANEL Jul 22, 2016 Office Visit, Est Pt., Level 4 Jul 22, 2016 IMMUNIZATIONS No Known Immunizations
--- OUTSIDE RECORDS SUMMARY | 2018-05-19 09:38 | XMS REPORT ---
Author Author VINCENT DE SOUZA [facility] Address [address] [place] [address] Care Team Providers Care Pharmacy Stock Clerk Name Role Phone VINCENT DE SOUZA Unavailable PROBLEMS Type Condition ICD9-CM Code REM96-ID Code Onset Dates Condition Status SNOMED Code Problem Essential hypertension I10 Active 13491173 Problem Pre-diabetes R73.09 Active 294527530 Problem Gastroesophageal reflux disease without esophagitis K21.9 Active 610357843 Problem Acquired hypothyroidism E03.9 Active 228355703 ALLERGIES No Known Allergies ENCOUNTERS Encounter Location Date Diagnosis [facility] [address] [id number] May, [facility] [address] [id number] Nov, Dental examination Z01.20 [facility] [address] [address] Oct, Acute sinusitis, recurrence not specified, unspecified location J01.90 ; Cough R05 ; Nasal sinus congestion R09.81 ; Seasonal allergic rhinitis, unspecified trigger J30.2 and Post-nasal drainage R09.82 [facility] [address] [address] Sep, Acquired hypothyroidism E03.9 ; Pre-diabetes R73.09 ; Essential hypertension I10 ; Gastroesophageal reflux disease without esophagitis K21.9 and Long-term use of high-risk medication Z79.899 [facility] [address] [address] Jul, Viral gastroenteritis A08.4 [facility] [address] [id number] May, Encounter for dental examination Z01.20 [facility] [address] [place] [address]- 7374 17 Dec, 2016 Essential hypertension I10 and Acquired hypothyroidism E03.9 [facility] [id number] [place] [address]35- 6092 December, Acquired hypothyroidism E03.9 ; General medical exam Z00.00 and Essential hypertension I10 [facility] [address] [address] Nov, Acquired hypothyroidism E03.9 ; Pre-diabetes R73.09 ; Essential hypertension I10 ; Skin lesions L98.9 and General medical exam Z00.00 [facility] [address] [id number] 31 Oct, 2016 Encounter for dental examination Z01.20 [facility] [id number] [place] [address]7554- 8046 08 Oct, 2016 Bronchitis J40 [facility] [address] [address] 06 Oct, 2016 Sore throat J02.9 and Strep pharyngitis J02.0 [facility] [id number] [place] [address] 12001- 4564 Aug, [facility] [id number] [place] [address] 69725- 5477 Jul, Acquired hypothyroidism E03.9 ; Pre-diabetes R73.09 ; Essential hypertension I10 and Vertigo R42 [facility] [id number] [place] [address]72 -8030 Jun, Vertigo R42 [facility] [id number] [place] [address] [id number] Apr, Dental examination Z01.20 [facility] [id number] [place] [address] 54559- 4880 13 Apr, 2016 Acquired hypothyroidism E03.9 ; Pre-diabetes R73.09 and Fatigue, unspecified type R53.83 [place] [address] [address]- [address] Mar, [place] [address] [address]- [address] Mar, Dysthymia F34.1 [place] [address] 79887- 9453 Feb, Rectal bleeding K62.5 and Dysthymia F34.1 [place] [address] 7[address]- 2639 December, Acquired hypothyroidism E03.9 ; Pre-diabetes R73.09 ; Gastroesophageal reflux disease without esophagitis K21.9 and Elevated blood pressure I10 [place] [address] [address]- 5330 December, Acute labyrinthitis, unspecified laterality H83.09 [place] [address] [address]- 0796 December, Hypothyroidism 244.9 [facility] [address] [id number] Oct, Encounter for dental examination Z01.20 [place] [id number] [place] [address] 68950- 9533 Sep, [place] [address] 42754- 1106 Aug, [place] [address] 8[address]- 0419 Jun, [facility] [address] [id number] Jun, Dental examination V72.2 [place] [address] 67164- 9665 Jun, Hypothyroidism 244.9 [place] [address] 62182- 9105 May, Hypothyroidism 244.9 [facility] [address] [id number] [id number] May, Encounter for dental examination Z01.20 [facility] [id number] [place] [address] 19696422- 3623 Mar, Hypothyroidism 244.9 and Prediabetes 790.29 [facility] [id number] [place] [address] [id number] Mar, Dental examination V72.2 [facility] [id number] [place] [address] [id number] Mar, Dental examination V72.2 [facility] [address] 44849- 5052 Mar, [facility] [id number] [place] [address] 46969- 8909 Mar, [facility] [id number] [place] [address] 24909- 8928 Mar, [facility] [id number] [place] [address] 86536- 8203 Feb, Hypothyroidism 244.9 [facility] [id number] [place] [address] 68298- 0078 Feb, [facility] [address] [place] [address] 30670- 5851 Feb, Hypothyroidism 244.9 and Other malaise and fatigue 780.79 [facility] [id number] [place] [address] 02875- 0494 Feb, [facility] [id number] [place] [address] 37232- 0137 Feb, Pre-diabetes 790.29 ; Hypothyroidism 244.9 ; Family history of cardiac disorder V17.49 and Elevated blood pressure 796.2 [facility] [id number] [place] [address] 65744- 7183 Feb, [facility] [address] [id number] [place] [id number] Jan, Dental examination V72.2 [facility] [place] [facility] [address] [id number] [place] [address]- 0367 14 Nov, 2014 [facility] [place] [facility] [address] [id number] [place] [address]- 1767 Nov, [facility] [place] [facility] [address] [id number] [place] [address]- 2454 Oct, [facility] [place] [facility] [address] [id number] [place] [address]- 8580 Oct, [facility] [place] [facility] [address] [id number] [place] [address]- 6951 Aug, [facility] [place] [facility] [address] [id number] [place] [address]- 1040 Aug, [facility] [address] [id number] [place] [address]- 0288 Aug, [facility] [place] [facility] [address] [id number] [place] [address]- 3180 Aug, [facility] [place] [facility] [address] [id number] [place] [address]- 8806 Jun, [facility] [place] [facility] [address] [id number] [place] [address]- 3652 Jun, [facility] [place] [facility] [address] [id number], [place] [address]- 0410 Apr, [facility] [place] [facility] [address] [id number] [place] [address]99 Apr, [facility] [place] [facility] [address] [id number] [place] [address] [address]99 Mar, [facility] [place] [facility] [address] [id number] [place] [address]- 4892 Mar, [facility] [place] [facility] [address] [id number], [place] [address]- 6694 December, [facility] [address] [facility] [id number], [place] [address]- 0314 December, [facility] [address] [facility] [id number] 4353 December, [facility] [address] [facility] [id number], [place] [address]- 8982 December, [facility] [address] [facility] [id number] 5405 December, [facility] [address] [facility] [id number], [place] [address]- 2816 December, [facility] [address] [facility] [id number][place] 3823 Sep, [facility] [address] [address]- 0740 Jul, [facility] [address]65[address], [place] [address]- 2999 Jul, [facility] [address] [id number], [place] [address]- 0842 Jul, [facility] [address] [id number], [place] [address]- 2610 Jul, IMMUNIZATIONS No Known Immunizations SOCIAL HISTORY Never Assessed REASON FOR VISIT 6 MO RECALL PLAN OF CARE Activity Details Follow Up 6 Months Reason:Perio Maint VITAL SIGNS Heart Rate 81 bpm 2017-05-11 Blood pressure systolic 113 mmHg 2017-05-11 Blood pressure diastolic 67 mmHg 2017-05-11 MEDICATIONS Medication Instructions Dosage Frequency Start Date [...] PROCEDURES Procedure Date Ordered Result Body Site PERIODIC ORAL EXAMINATION May 11, 2017 BITEWINGS - FOUR FILMS May 11, 2017 Periodontal maint procedures May 11, 2017 INSTRUCTIONS MEDICATIONS ADMINISTERED No Known Medications MEDICAL (GENERAL) HISTORY Type Description Date Medical History Elevated Blood Pressure Medical History Hypothyroidism Medical History Prediabetes Medical History Esophageal Reflux Medical History Colonosocpy Kido
--- OUTSIDE RECORDS SUMMARY | 2018-05-19 09:38 | XMS REPORT ---
Author Author CARTER STEPHENS Organization [employer] Address Unknown Phone Unavailable Care Team Providers Care Paper Reel Operator Name Role Phone CARTER STEPHENS CP Unavailable Allergies No Known Allergies Problems Problem Type Condition Code Onset Dates Condition Status Problem Unspecified myalgia and myositis 729.1 Active Problem Other malaise and fatigue 780.79 Active Problem Screening examination for venereal disease V74.5 Active Assessment Hypothyroidism 244.9 Active Problem Esophageal reflux 530.81 Active Problem Pain in joint, lower leg 719.46 Active Medications No Known Medications Results No Known Results Summary Purpose [employer] Submission
--- OUTSIDE RECORDS SUMMARY | 2018-05-19 09:38 | XMS REPORT ---
Author Author JONG EARLY Organization [facility] Address [address] [place] [address] Care Team Providers Care Power Generation Plant Operator Name Role Phone EARLYJONG Gutierrez Unavailable PROBLEMS Type Condition ICD9-CM Code EDV39-FZ Code Onset Dates Condition Status SNOMED Code Problem Essential hypertension I10 Active 12413601 Problem Pre-diabetes R73.09 Active 248276147 Problem Gastroesophageal reflux disease without esophagitis K21.9 Active 545221068 Problem Acquired hypothyroidism E03.9 Active 515494439 ALLERGIES No Known Allergies ENCOUNTERS Encounter Location Date Diagnosis [facility] [address] [id number] May, [facility] [address] [id number] Nov, Dental examination Z01.20 [facility] [address] [address] Oct, Acute sinusitis, recurrence not specified, unspecified location J01.90 ; Cough R05 ; Nasal sinus congestion R09.81 ; Seasonal allergic rhinitis, unspecified trigger J30.2 and Post-nasal drainage R09.82 [facility] [address] [address]- 4111 13 Sep, 2017 Acquired hypothyroidism E03.9 ; Pre-diabetes R73.09 ; Essential hypertension I10 ; Gastroesophageal reflux disease without esophagitis K21.9 and Long-term use of high-risk medication Z79.899 [facility] [address] [address] Jul, Viral gastroenteritis A08.4 [facility] [id number] [place] [address] [id number] May, Encounter for dental examination Z01.20 [facility] [id number] [place] [address] 99290- 6022 17 Dec, 2016 Essential hypertension I10 and Acquired hypothyroidism E03.9 [facility] [id number] [place] [address] 41222- 9830 December, Acquired hypothyroidism E03.9 ; General medical exam Z00.00 and Essential hypertension I10 [facility] [address] [address]- [address]85 Nov, Acquired hypothyroidism E03.9 ; Pre-diabetes R73.09 ; Essential hypertension I10 ; Skin lesions L98.9 and General medical exam Z00.00 [facility] [id number] [place] [address] [id number] Oct, Encounter for dental examination Z01.20 [facility] [id number] [place] [address] 12656- 4351 08 Oct, 2016 Bronchitis J40 [facility] [address] [address] 06 Oct, 2016 Sore throat J02.9 and Strep pharyngitis J02.0 [facility] [id number] [place] [address] 14457- 0010 Aug, [facility] [id number] [place] [address] 01876- 2561 Jul, Acquired hypothyroidism E03.9 ; Pre-diabetes R73.09 ; Essential hypertension I10 and Vertigo R42 [facility] [id number] [place] [address] 40762 -1275 Jun, Vertigo R42 [facility] [id number] [place] [address] [id number] Apr, Dental examination Z01.20 [facility] [id number] [place] [address] 87255- 7635 13 Apr, 2016 Acquired hypothyroidism E03.9 ; Pre-diabetes R73.09 and Fatigue, unspecified type R53.83 [place] [id number] [place] [address] 13049- 3678 Mar, [place] [address] 98142- 9604 Mar, Dysthymia F34.1 [place] [address] 99272- 5876 Feb, Rectal bleeding K62.5 and Dysthymia F34.1 [place] [address] 25965- 0708 December, Acquired hypothyroidism E03.9 ; Pre-diabetes R73.09 ; Gastroesophageal reflux disease without esophagitis K21.9 and Elevated blood pressure I10 [place] [address] 20022- 9057 December, Acute labyrinthitis, unspecified laterality H83.09 [place] [address] 64244- 6326 December, Hypothyroidism 244.9 [facility] [address] [id number] Oct, Encounter for dental examination Z01.20 [place] [id number] [place] [address] 07545- 8372 Sep, [place] [address] 00071- 4412 Aug, [place] [address] 27916- 2341 Jun, [facility] [address] [id number] Jun, Dental examination V72.2 [place] [address] 71462- 1090 Jun, Hypothyroidism 244.9 [place] [address] 35898- 4055 May, Hypothyroidism 244.9 [facility] [address] [id number] May, Encounter for dental examination Z01.20 [facility] [id number] [place] [address] 29237- 5331 Mar, Hypothyroidism 244.9 and Prediabetes 790.29 [facility] [id number] [place] [address] [id number] Mar, Dental examination V72.2 [facility] [id number] [place] [address] [id number] Mar, Dental examination V72.2 [facility] [id number] [place] [address] 43035- 9972 Mar, [facility] [id number] [place] [address] 43888- 3010 Mar, [facility] [id number] [place] [address] 53080- 9599 Mar, [facility] [id number] [place] [address] 53823- 5111 Feb, Hypothyroidism 244.9 [facility] [id number] [place] [address] 82764- 3018 Feb, [facility] [address] [place] [address] 42750- 0324 Feb, Hypothyroidism 244.9 and Other malaise and fatigue 780.79 [facility] [id number] [place] [address] 98559- 2877 Feb, [facility] [id number] [place] [address] 82265- 2766 Feb, Pre-diabetes 790.29 ; Hypothyroidism 244.9 ; Family history of cardiac disorder V17.49 and Elevated blood pressure 796.2 [facility] [id number] [place] [address] 87522- 6250 Feb, [facility] [address] [id number] [id number] Jan, Dental examination V72.2 [facility] [address] [id number] [place] [address]- 5488 14 Nov, 2014 [facility] [address] [id number] [place] [address]- 8150 Nov, [facility] [address] [id number] [place] [address] Oct, [facility] [address] [id number] [place] [address]- 3547 Oct, [facility] [address] [id number] [place] [address]- 1675 Aug, [facility] [address] [id number] [place] [address]- 8840 Aug, [facility] [address] [id number], [place] [address]- 4844 Aug, [facility] [address] [id number], [place] [address]- 9616 Aug, [facility] [address] [id number], [place] [address]- 8816 Jun, [facility] [place] [facility] [address] [id number], [place] [address]- 4988 Jun, [facility] [place] [facility] [address] [id number], [place] [address]- 4056 Apr, [facility] [place] [facility] [address] [id number], [place] [address]- 1355 Apr, [facility] [place] [facility] [address] [id number], [place] [address]- 6328 Mar, [facility] [place] [facility] [address] [id number], [place] [address]- 7989 Mar, [facility] [place] [facility] [address] [id number], [place] [address]- 3705 December, [facility] [address] [id number] [address]- 6716 December, [facility] [address]65[address], [place] [address]- 2546 December, [facility] [address] [id number] [address] 2546 December, [facility] [address]65100[place], [place] [address]- 4456 December, [facility] [address] [id number] [address]- 0199 December, [facility] [address]65[address], [place] [address]- 2276 Sep, [facility] [address]65[address], [place] [address]- 1935 Jul, [facility] [address] 8013 Jul, [facility] [address], [place] [address]- 9122 Jul, [facility] [address] [id number] [address]- 1595 Jul, IMMUNIZATIONS No Known Immunizations SOCIAL HISTORY Never Assessed REASON FOR VISIT sore throat, cough, chest congestion for a week. [email or web address], has had the same thing and was dx with allergies. PLAN OF CARE Activity Details Follow Up prn Reason: VITAL SIGNS Height 65 in 2016-10-12 Weight 244.8 lbs 2016-10-12 Temperature 97.5 degrees Fahrenheit 2016-10-12 Heart Rate 100 bpm 2016-10-12 Respiratory Rate 18 2016-10-12 BMI 40.73 kg/m2 2016-10-12 Blood pressure systolic 122 mmHg 2016-10-12 Blood pressure diastolic 78 mmHg 2016-10-12 MEDICATIONS Medication Instructions Dosage Frequency Start Date End Date Duration Status Levoxyl 25 MCG Orally Once a day 1 tablet 24h 30 Active Meloxicam 7.5 MG TAKE ONE TABLET BY MOUTH TWICE DAILY 30 Active Amoxicillin 500 mg Orally every 12 hrs 1 capsule 12h Oct, Oct, 10 day(s) Active Meclizine HCl 25 MG Orally tid prn vertigo 1 December, Not- Taking Lisinopril-Hydrochlorothiazide 10-12.5 MG Orally Once a day 1 tablet 24h 30 Active Aciphex 20 MG Orally Once a day 1 tablet 24h 30 Active RESULTS Name Result Date Reference Range STREP A (IN HOUSE) 2016-10-12 STREP A positive Control + Lot # [id number] Exp date apr 26 PROCEDURES Procedure Date Ordered Result Body Site STREP A ASSAY W/OPTIC October 12, 2016 INSTRUCTIONS MEDICATIONS ADMINISTERED No Known Medications MEDICAL (GENERAL) HISTORY Type Description Date Medical History Elevated Blood Pressure Medical History Hypothyroidism Medical History Prediabetes Medical History Esophageal Reflux Medical History Colonosocpy Kido
--- OUTSIDE RECORDS SUMMARY | 2018-05-19 09:38 | XMS REPORT ---
Author Author CARTER STEPHENS Organization [employer] Address Unknown Phone Unavailable Care Team Providers Care Dairy Helper Name Role Phone CARTER STEPHENS CP Unavailable Allergies, Adverse Reactions, Alerts Substance Reaction Event Type N.K.D.A. Info Not Available Non Drug Allergy Problems Problem Type Condition Code Onset Dates Condition Status Problem Pre-diabetes R73.09 Active Problem Gastroesophageal reflux disease without esophagitis K21.9 Active Problem Acquired hypothyroidism E03.9 Active Assessment Dysthymia F34.1 Active Problem Elevated blood pressure I10 Active Problem Encounter for dental examination Z01.20 Active Medications Medication Code System Code Instructions Start Date End Date Status Dosage Levoxyl [facility] 27095406930 25 MCG Orally Once a day 1 tablet Aciphex [facility] [address]-91 20 MG Orally Once a day 1 tablet Lisinopril [facility] [address]-67 5 mg Orally Once a day December 25, 2015 1 tablet Fluoxetine HCl [facility] [address]-17 20 MG Orally Once a day 1 capsule in the morning Meloxicam [facility] 34700624596 7.5 MG TAKE ONE TABLET BY MOUTH TWICE DAILY Procedures Procedure Coding System Code Date Office Visit, Est Pt., Level 3 CPT-4 06299 Mar 17, 2016 Vital Signs Date/Time: Mar 17, 2016 Cardiac Monitoring Heart Rate 77 bpm Weight 237.8 lbs Height 65 in BMI 39.57 Index Blood Pressure Diastolic 83 mmHg Blood Pressure Systolic 132 mmHg Results No Known Results Summary Purpose [employer] Submission
--- OUTSIDE RECORDS SUMMARY | 2018-05-19 09:38 | XMS REPORT ---
Author Author CARTER STEPHENS Organization [employer] Address Unknown Phone Unavailable Care Team Providers Care Malted Milk Masher Name Role Phone CARTER STEPHENS CP Unavailable [...]
--- OUTSIDE RECORDS SUMMARY | 2018-05-19 09:38 | XMS REPORT ---
Author Author CARTER STEPHENS Organization [employer] Address Unknown Phone Unavailable Care Team Providers Care House Designer Name Role Phone CARTER STEPHENS CP Unavailable Allergies, Adverse Reactions, Alerts Substance Reaction Event Type N.K.D.A. Info Not Available Non Drug Allergy Problems Problem Type Condition Code Onset Dates Condition Status Problem Pre-diabetes R73.09 Active Problem Gastroesophageal reflux disease without esophagitis K21.9 Active Problem Acquired hypothyroidism E03.9 Active Assessment Rectal bleeding K62.5 Active Assessment Dysthymia F34.1 Active Problem Elevated blood pressure I10 Active Problem Encounter for dental examination Z01.20 Active Medications Medication Code System Code Instructions Start Date End Date Status Dosage Fluoxetine HCl [facility] [address]-84 10 mg Orally Once a day February 18, 2016 1 capsule in the morning Meloxicam [facility] [address]-27 7.5 MG Orally 2 times a day 1 tablet Lisinopril [facility] [address]-60 5 mg Orally Once a day December 25, 2015 1 tablet Levoxyl [facility] 08377144649 25 MCG Orally Once a day 1 tablet Aciphex [facility] [address]-10 20 MG Orally Once a day 1 tablet Procedures Procedure Coding System Code Date Office Visit, Est Pt., Level 5 CPT-4 72383 February 18, 2016 Vital Signs Date/Time: February 18, 2016 Cardiac Monitoring Heart Rate 76 bpm Weight 236.0 lbs Height 65 in Blood Pressure Diastolic 80 mmHg Blood Pressure Systolic 138 mmHg Results No Known Results Summary Purpose eClinicalWorks Submission
--- OUTSIDE RECORDS SUMMARY | 2018-05-19 09:39 | XMS REPORT ---
Author Author AMELIA LEMA [facility] Address [address] [place] [address] Care Team Providers Care Automatic Pinsetter Adjuster Name Role Phone AMELIA LEMA Unavailable PROBLEMS Type Condition ICD9-CM Code [id number] Code Onset Dates Condition Status SNOMED Code Problem Essential hypertension I10 Active 85303454 Problem Fatigue, unspecified type R53.83 Active 98560635 Problem Elevated blood pressure I10 Active 56312452 Problem Gastroesophageal reflux disease without esophagitis K21.9 Active 454413140 Problem Acquired hypothyroidism E03.9 Active 625454762 Problem Pre-diabetes R73.09 Active 503353585 ALLERGIES No Known Allergies SOCIAL HISTORY Never Assessed PLAN OF CARE VITAL SIGNS Height 65 in 2016-10-14 Weight 244.3 lbs 2016-10-14 Temperature 97.8 degrees Fahrenheit 2016-10-14 Heart Rate 80 bpm 2016-10-14 Respiratory Rate 20 2016-10-14 BMI 40.65 kg/m2 2016-10-14 Blood pressure systolic 106 mmHg 2016-10-14 Blood pressure diastolic 84 mmHg 2016-10-14 MEDICATIONS Medication Instructions Dosage Frequency Start Date End Date Duration Status Meloxicam 7.5 MG TAKE ONE TABLET BY MOUTH TWICE DAILY 30 Active Aciphex 20 MG Orally Once a day 1 tablet 24h 30 Active Amoxicillin 500 mg Orally every 12 hrs 1 capsule 12h Oct, Oct, 10 day(s) Active Lisinopril-Hydrochlorothiazide 10-12.5 MG Orally Once a day 1 tablet 24h 30 Active Levoxyl 25 MCG Orally Once a day 1 tablet 24h 30 Active Promethazine-Codeine 6.25-10 MG/5ML Orally every 6 hrs 5 ml as needed 6h Oct, Active Azithromycin 250 MG Orally Once a day 2 tablets on the first day, then 1 tablet daily for 4 days 24h Oct, Oct, 5 day(s) Active RESULTS No Results PROCEDURES Procedure Date Ordered Result Body Site DEXAMETHASONE 4MG/ML (PER 1 MG) October 14, 2016 DEPO MEDROL 40 MG/ML October 14, 2016 THER/PROPH/DIAG INJ, SC/IM October 14, 2016 IMMUNIZATIONS Vaccine Route Administration Date Status DEXAMETHASONE 4MG/ML (PER 1 MG) IM Intramuscular October 14, 2016 Administered DEPO MEDROL 40 MG/ML IM Intramuscular October 14, 2016 Administered MEDICAL (GENERAL) HISTORY Type Description Date Medical History Elevated Blood Pressure Medical History Hypothyroidism Medical History Prediabetes Medical History Esophageal Reflux Medical History Colonosocpy Kido
--- OUTSIDE RECORDS SUMMARY | 2018-05-19 09:39 | XMS REPORT ---
Author Author JESS HUDSON [facility] [place] eClinical[employer] Address Unknown Phone Unavailable Care Team Providers Care Field Training Agent Name Role Phone JESS HDUSON CP Unavailable Allergies, Adverse Reactions, Alerts Substance Reaction Event Type N.K.D.A. Info Not Available Non Drug Allergy Problems Problem Type Condition Code Onset Dates Condition Status Problem Unspecified myalgia and myositis 729.1 Active Problem Other malaise and fatigue 780.79 Active Problem Screening examination for venereal disease V74.5 Active Assessment Dental examination V72.2 Active Problem Esophageal reflux 530.81 Active Problem Pain in joint, lower leg 719.46 Active Medications Medication Code System Code Instructions Start Date End Date Status Dosage Meloxicam [facility] [address]-52 7.5 MG Orally 2 times a day 1 tablet Levoxyl [facility] 67479695553 25 MCG Orally Once a day 1 tablet Vital Signs Date/Time: Jun 26, 2015 Blood Pressure Diastolic 98 mmHg Blood Pressure Systolic 133 mmHg Results No Known Results Summary Purpose eClinicalWorks Submission
--- OUTSIDE RECORDS SUMMARY | 2018-05-19 09:39 | XMS REPORT ---
Author Author SONALI CELIS Organization [employer] Address Unknown Phone Unavailable Care Team Providers Care Business Advisor Name Role Phone SONALI CELIS CP Unavailable Allergies No Known Allergies Problems Problem Type Condition Code Onset Dates Condition Status Problem Acquired hypothyroidism E03.9 Active Problem Pre-diabetes R73.09 Active Problem Fatigue, unspecified type R53.83 Active Problem Encounter for dental examination Z01.20 Active Assessment Dental examination Z01.20 Active Problem Gastroesophageal reflux disease without esophagitis K21.9 Active Problem Elevated blood pressure I10 Active Medications No Known Medications Procedures Procedure Coding System Code Date TOPICAL FLUORIDE VARNISH CPT-4 D1206 May 06, 2016 Periodontal maint procedures CPT-4 D4910 May 06, 2016 Results No Known Results Summary Purpose eClinicalWorks Submission
--- OUTSIDE RECORDS SUMMARY | 2018-05-19 09:39 | XMS REPORT ---
Author Author SONALI CELIS Organization [employer] Address Unknown Phone Unavailable Care Team Providers Care Senior Dot Net Developer Name Role Phone SONALI CELIS CP Unavailable [...] Medications Procedures Procedure Coding System Code Date INTRAORL-PERIAPICAL 1 FILM 06187 CPT-4 D0220 Mar 21, 2015 INTRAORL-PERIAPICAL EA ADD FILM CPT-4 D0230 Mar 21, 2015 PERIODIC ORAL EXAMINATION CPT-4 D0120 Mar 21, 2015 BITEWINGS - FOUR FILMS CPT-4 D0274 Mar 21, 2015 INTRAORL-PERIAPICAL EA ADD FILM CPT-4 D0230 Mar 21, 2015 Periodontal maint procedures CPT-4 D4910 Mar 21, 2015 TOPICAL FLUORIDE VARNISH CPT-4 D1206 Mar 21, 2015 Results No Known Results Summary Purpose eClinicalWorks Submission
--- OUTSIDE RECORDS SUMMARY | 2018-05-19 09:39 | XMS REPORT ---
Author Author ANGEL BECERRIL [facility] Address [address] [place] [address] Care Team Providers Care Hardboard Press Operator Name Role Phone ANGEL BECERRIL Unavailable PROBLEMS Type Condition ICD9-CM Code XHO56-RJ Code Onset Dates Condition Status SNOMED Code Problem Essential hypertension I10 Active 39582452 Problem Pre-diabetes R73.09 Active 769029567 Problem Gastroesophageal reflux disease without esophagitis K21.9 Active 874442450 Problem Acquired hypothyroidism E03.9 Active 498945444 ALLERGIES No Known Allergies ENCOUNTERS Encounter Location Date Diagnosis [facility] [address] [id number] May, [facility] [address] [id number] Nov, Dental examination Z01.20 [facility] [address] [address] Oct, Acute sinusitis, recurrence not specified, unspecified location J01.90 ; Cough R05 ; Nasal sinus congestion R09.81 ; Seasonal allergic rhinitis, unspecified trigger J30.2 and Post-nasal drainage R09.82 [facility] [id number] [place] [address] 13 Sep, 2017 Acquired hypothyroidism E03.9 ; Pre-diabetes R73.09 ; Essential hypertension I10 ; Gastroesophageal reflux disease without esophagitis K21.9 and Long-term use of high-risk medication Z79.899 [facility] [address] [address] Jul, Viral gastroenteritis A08.4 [facility] [address] [id number] May, Encounter for dental examination Z01.20 [facility] [id number] [place] [address] December, Essential hypertension I10 and Acquired hypothyroidism E03.9 [facility] [id number] [place] [address] December, Acquired hypothyroidism E03.9 ; General medical exam Z00.00 and Essential hypertension I10 [facility] [id number] [place] [address] Nov, Acquired hypothyroidism E03.9 ; Pre-diabetes R73.09 ; Essential hypertension I10 ; Skin lesions L98.9 and General medical exam Z00.00 [facility] [id number] [place] [id number] Oct, Encounter for dental examination Z01.20 [facility] [id number] [place] [address] Oct, Bron[address] J40 [facility] [id number] [place] [phone] Oct, Sore throat J02.9 and Strep pharyngitis J02.0 [facility] [id number] [place] [address] Aug, [facility] [id number] [place] [address] Jul, Acquired hypothyroidism E03.9 ; Pre-diabetes R73.09 ; Essential hypertension I10 [address] Vertigo [address]42 [facility] [id number] [place] [address] Jun, Vertigo R42 [facility] [id number] [place] [phone] Apr, Dental examination Z01.20 [facility] [id number] [place] [address] 13 Apr, 2016 Acquired hypothyroidism E03.9 ; Pre-diabetes R73.09 and Fatigue, unspecified type R53.83 [facility] [id number] [place] [address] Mar, [place] [id number] [place] [address] Mar, Dysthymia F34.1 [place] [address] [address] Feb, Rectal bleeding K62.5 and Dysthymia F34.1 [place] [address] [address] December, Acquired hypothyroidism E03.9 ; Pre-diabetes R73.09 ; Gastroesophageal reflux disease without esophagitis K21.9 and Elevated blood pressure I10 [place] [address] [address] December, Acute labyrinthitis, unspecified laterality H83.09 [place] [address] [address] December, Hypothyroidism 244.9 [facility] [address] [id number] Oct, Encounter for dental examination Z01.20 [place] [id number] [place] [address] Sep, [place] [address] [address] Aug, [place] [id number] [place] [address] Jun, [facility] [address] [id number] Jun, Dental examination V72.2 [place] [id number] [place] [address] Jun, Hypothyroidism 244.9 [facility] [address] [address] May, Hypothyroidism 244.9 [facility] [address] [id number] May, Encounter for dental examination Z01.20 [facility] [id number] [place] [phone]- [phone] Mar, Hypothyroidism 244.9 and Prediabetes 790.29 [facility] [id number] [place] [id number] Mar, Dental examination V72.2 [facility] [id number] [place] [id number] Mar, Dental examination V72.2 [facility] [id number] [place] [address] Mar, [facility] [id number] [place] [address] 07[address]887 Mar, [facility] [id number] [place] [phone]- [phone] Mar, [facility] [id number] [place] [address] 2311 Feb, Hypothyroidism 244.9 [facility] [id number] [place] [address] 60[address]- [address] Feb, [facility] [id number] [place] [address] Feb, Hypothyroidism 244.9 and Other malaise and fatigue 780.79 [facility] [address] [place] [address] 15[address]- [address]659 Feb, [facility] [id number] [place] [address] 39[address]- 268[address] Feb, Pre-diabetes 790.29 ; Hypothyroidism 244.9 ; Family history of cardiac disorder V17.49 and Elevated blood pressure 796.2 [facility] [id number] [place] [address]- [address]7 Feb, [facility] [address] [id number] [id number] Jan, Dental examination V72.2 [facility] [place] [facility] [address] [id number] [place] [address] Nov, [facility] [place] [facility] [address] [id number] [place] [address] Nov, [facility] [place] [facility] [address] [id number] [address] Oct, [facility] [place] [facility] [address] [id number] [place] [address] Oct, [facility] [place] [facility] [address] [id number] [address] Aug, [facility] [place] [facility] [address] [id number] [place] [address] Aug, [facility] [place] [facility] [address] [id number] [address] Aug, [facility] [place] [facility] [address] [id number] [address] Aug, [facility] [place] [facility] [address] [id number] [address] Jun, [facility] [place] [facility] [address] [id number] [place] [address] Jun, [facility] [place] [facility] [address] [id number] [address] Apr, [facility] [place] [facility] [address] [id number] [place] [address] Apr, [facility] [place] [facility] [address] [id number] [address] Mar, [facility] [place] [facility] [address] [id number] [address] Mar, [facility] [place] [facility] [id number] [address] December, [facility] [id number] [address] December, [facility] [address] December, [facility] [id number] December, [facility] [id number] [address] December, [facility] [id number] December, [facility] [address] [address] Sep, [facility] [address] [address] Jul, [facility] [id number] [address] Jul, [facility] [id number] [address] Jul, [facility] [id number] [address] Jul, IMMUNIZATIONS No Known Immunizations SOCIAL HISTORY Never Assessed REASON FOR VISIT stomach ache/diarrhea for 3 days ian martínez PLAN OF CARE Activity Details Follow Up prn Reason: VITAL SIGNS Height 65 in 2017-07-30 Weight 231.2 lbs 2017-07-30 Temperature 97.2 degrees Fahrenheit 2017-07-30 Heart Rate 86 bpm 2017-07-30 Respiratory Rate 18 2017-07-30 BMI 38.47 kg/m2 2017-07-30 Blood pressure systolic 130 mmHg 2017-07-30 Blood pressure diastolic 80 mmHg 2017-07-30 MEDICATIONS Medication Instructions Dosage Frequency Start Date End Date Duration Status Aciphex 20 mg Orally Once a day 1 tablet 24h 30 Active Lisinopril-Hydrochlorothiazide 10-12.5 MG Orally Once a day 1 tablet 24h 30 Active Meloxicam 7.5 MG TAKE ONE TABLET BY MOUTH TWICE DAILY 30 Active Meclizine HCl 25 MG Orally tid prn vertigo 1 December, Not- Taking Levoxyl 25 MCG Orally Once a day 1 tablet 24h 30 Active RESULTS No Results PROCEDURES No Known procedures INSTRUCTIONS MEDICATIONS ADMINISTERED No Known Medications MEDICAL (GENERAL) HISTORY Type Description Date Medical History Elevated Blood Pressure Medical History Hypothyroidism Medical History Prediabetes Medical History Esophageal Reflux Medical History Colonosocpy Brenda
--- OUTSIDE RECORDS SUMMARY | 2018-05-19 09:39 | XMS REPORT ---
Author Author CARTER STEPHENS [facility] Address [address] [place] [address] Care Team Providers Care Stock Selector Name Role Phone CARTER STEPHENS Unavailable PROBLEMS Type Condition ICD9-CM Code SOS64-ST Code Onset Dates Condition Status SNOMED Code Problem Gastroesophageal reflux disease without esophagitis K21.9 Active 413161349 Problem Encounter for dental examination Z01.20 Active 475954550 Problem Essential hypertension I10 Active 48764674 Problem Pre-diabetes R73.09 Active 956037443 Problem Elevated blood pressure I10 Active 82251972 Problem Fatigue, unspecified type R53.83 Active 47885809 Problem Acquired hypothyroidism E03.9 Active 843154281 ALLERGIES No Information SOCIAL HISTORY Never Assessed PLAN OF CARE VITAL SIGNS MEDICATIONS Unknown Medications RESULTS Name Result Date Reference Range TSH 2016-12-21 TSH 2.660 0.450-4.500 CBC 2016-12-21 WBC 5.5 3.4-10.8 RBC 4.96 4.14-5.80 Hemoglobin 14.7 12.6-17.7 Hematocrit 43.5 37.5-51.0 MCV 88 79-97 MCH 29.6 26.6-33.0 MCHC 33.8 31.5-35.7 RDW 13.9 12.3-15.4 Platelets 294 150-379 Neutrophils 48 Lymphs 34 Monocytes 8 Eos 7 Basos 1 Neutrophils (Absolute) 2.7 1.4-7.0 Lymphs (Absolute) 1.9 0.7-3.1 Monocytes(Absolute) 0.4 0.1-0.9 Eos (Absolute) 0.4 0.0-0.4 Baso (Absolute) 0.0 0.0-0.2 Immature Granulocytes 2 Immature Grans (Abs) 0.1 0.0-0.1 PSA 2016-12-21 Prostate Specific Ag, Serum 0.7 0.0-4.0 LIPID PANEL 2016-12-21 Cholesterol, Total 158 100-199 Triglycerides 87 0-149 HDL Cholesterol 43 >39 VLDL Cholesterol Too 17 5-40 LDL Cholesterol Calc 98 0-99 CMP 2016-12-21 Glucose, Serum 96 65-99 BUN 11 6-24 Creatinine, Serum 0.92 0.76-1.27 eGFR If NonAfricn Am 100 >59 eGFR If Africn Am 116 >59 BUN/Creatinine Ratio 12 9-20 Sodium, Serum 140 134-144 Potassium, Serum 4.5 3.5-5.2 Chloride, Serum 104 96-106 Carbon Dioxide, Total 21 18-29 Calcium, Serum 9.1 8.7-10.2 Protein, Total, Serum 7.0 6.0-8.5 Albumin, Serum 4.0 3.5-5.5 Globulin, Total 3.0 1.5-4.5 A/G Ratio 1.3 1.2-2.2 Bilirubin, Total 0.4 0.0-1.2 Alkaline Phosphatase, S 59 39-117 AST (SGOT) 19 0-40 ALT (SGPT) 38 0-44 PROCEDURES Procedure Date Ordered Result Body Site ASSAY THYROID STIM HORMONE December 21, 2016 COMPLETE CBC W/AUTO DIFF WBC December 21, 2016 LIPID PANEL December 21, 2016 ASSAY OF PSA, TOTAL December 21, 2016 VENIPUNCT, ROUTINE* December 21, 2016 COMPREHEN METABOLIC PANEL December 21, 2016 IMMUNIZATIONS No Known Immunizations MEDICAL (GENERAL) HISTORY Type Description Date Medical History Elevated Blood Pressure Medical History Hypothyroidism Medical History Prediabetes Medical History Esophageal Reflux Medical History Colonosocpy Kido
--- OUTSIDE RECORDS SUMMARY | 2018-05-19 09:39 | XMS REPORT ---
Author Author CARTER STEPHENS Organization eClinical[employer] Address Unknown Phone Unavailable Care Team Providers Care Appraiser Land Name Role Phone CARTER STEPHENS CP Unavailable Allergies No Known Allergies Problems Problem Type Condition Code Onset Dates Condition Status Problem Pre-diabetes R73.09 Active Problem Gastroesophageal reflux disease without esophagitis K21.9 Active Problem Acquired hypothyroidism E03.9 Active Problem Elevated blood pressure I10 Active Problem Encounter for dental examination Z01.20 Active Medications No Known Medications Results No Known Results Summary Purpose eClinicalWorks Submission
--- OUTSIDE RECORDS SUMMARY | 2018-05-19 09:39 | XMS REPORT ---
Author Author CARTER STEPHENS [facility] Address [address] [place] [address] Care Team Providers Care Hospice Home Health Aide Name Role Phone CARTER STEPHENS Unavailable PROBLEMS Type Condition ICD9-CM Code URV41-OY Code Onset Dates Condition Status SNOMED Code Problem Essential hypertension I10 Active 14002431 Problem Fatigue, unspecified type R53.83 Active 70913933 Problem Elevated blood pressure I10 Active 60441001 Problem Gastroesophageal reflux disease without esophagitis K21.9 Active 526226975 Problem Acquired hypothyroidism E03.9 Active 541707988 Problem Pre-diabetes R73.09 Active 965046398 ALLERGIES Unknown Allergies SOCIAL HISTORY No smoking Hx information available PLAN OF CARE VITAL SIGNS Height 65 in 2016-08-31 Blood pressure systolic 112 mmHg 2016-08-31 Blood pressure diastolic 74 mmHg 2016-08-31 MEDICATIONS Unknown Medications RESULTS No Results PROCEDURES No Known procedures IMMUNIZATIONS No Known Immunizations
--- OUTSIDE RECORDS SUMMARY | 2018-05-19 09:40 | XMS REPORT ---
Author Author ELVAI PERES Organization [employer] Address Unknown Phone Unavailable Care Team Providers Care Orthopedic Dentist Name Role Phone ELVIA PERES CP Unavailable Allergies No Known Allergies Problems [...] Medications Procedures Procedure Coding System Code Date AMALGAM-TWO SURFACES PRIMARY/PERM CPT-4 D2150 Mar 27, 2015 AMALGAM-TWO SURFACES PRIMARY/PERM CPT-4 D2150 Mar 27, 2015 Results No Known Results Summary Purpose eClinicalWorks Submission
--- OUTSIDE RECORDS SUMMARY | 2018-05-19 09:40 | XMS REPORT | Continuity of Care Document ---
Author Author Mahdi WILLETT, [employer] Organization Ambulatory Address [address] [place] [address] Phone Payers Payer name Insurance type Covered libertarian ID Authorization(s) Unknown Problems Condition Effective Dates (start - stop) Clinical Status Muscle strain of lower extremity - *Acute Unspecified fall - *Acute Family History Family Member Diagnosis Age At Onset Status Unknown Social History Social History Element Description Quantity Unknown Allergies, Adverse Reactions, Alerts Substance Reaction Severity Status Unknown Medications Medication Instructions Dosage Effective Dates (start - stop) Status Unknown Immunizations Vaccine Date Status Comments Unknown Results Test Name Date and Time Measure Units Reference Range Abnormal Flag Comments Unknown Vital Signs Date / Time: Height Weight Pulse Rate Blood Pressure Temperature /16:13:00 65.00 in 238.00 lbs 76 /min 133/88 mm[Hg] 97.3 F Procedures Procedure Date Unknown Encounters Encounter Location Date Patient Visit [facility] Advance Directives Directive Effective Date Unknown
--- OUTSIDE RECORDS SUMMARY | 2018-05-19 09:40 | XMS REPORT | Continuity of Care Document ---
Author Author [facility] Address Unknown Phone Unavailable Allergies Active Description Code Type Severity Reaction Onset Reported/Identified Relationship to Patient Clinical Status Yes No Allergy Information Available [id number] Drug Allergy Unknown N/A 2017 Yes No Known Drug Allergies [id number] Drug Allergy Unknown N/A 05/18/2018 Medications There is no data. Problems Date Dx Coded Attending Type Code Diagnosis Diagnosed By 07/27/2013 EWA ANDREWS APRN 729.1 MYALGIA AND MYOSITIS UNSPECIFIED 07/27/2013 EWA ANDREWS APRN 729.1 MYALGIA AND MYOSITIS UNSPECIFIED 07/27/2013 EWA ANDREWS APRN 729.1 MYALGIA AND MYOSITIS UNSPECIFIED 12/13/2013 EWA ANDREWS APRN R V74.5 STD SCREEN 12/13/2013 JULIANA WINTER EWA R V74.5 STD SCREEN 04/06/2014 EWA ANDREWS APRN R 530.81 GERD 04/06/2014 EWA ANDREWS APRN R 780.79 OTHER MALAISE AND FATIGUE 04/12/2018 JODY GONZALEZ MD Ot K76.89 OTHER SPECIFIED DISEASES OF LIVER 04/15/2018 JODY GONZALEZ MD, Ot K76.89 OTHER SPECIFIED DISEASES OF LIVER 04/18/2018 JODY GONZALEZ MD Ot R10.11 RIGHT UPPER QUADRANT PAIN 04/28/2018 JODY GONZALEZ MD, Ot R10.11 RIGHT UPPER QUADRANT PAIN Procedures Code [place] [address] ROUTINE VENIPUNCTURE 04/06/2014 35471 TESTOSTERONE TOTAL MALES 04/06/2014 Results Test Result Range Urine Culture, Routine - 04/22/17 11:01 Urine Culture, Routine Note Comp. Metabolic Panel (14) - 07/06/16 10:01 Glucose, Serum 96 mg/dL 65-99 BUN 13 mg/dL 6-24 Creatinine, Serum 0.93 mg/dL 0.76-1.27 eGFR If NonAfricn Am 99 mL/min/1.73 >59 eGFR If Africn Am 114 mL/min/1.73 >59 BUN/Creatinine Ratio 14 9-20 Sodium, Serum 141 mmol/L 136-144 Potassium, Serum 4.7 mmol/L 3.5-5.2 Chloride, Serum 103 mmol/L 97-106 Carbon Dioxide, Total 25 mmol/L 18-29 Calcium, Serum 9.2 mg/dL 8.7-10.2 Protein, Total, Serum 7.0 g/dL 6.0-8.5 Albumin, Serum 4.2 g/dL 3.5-5.5 Globulin, Total 2.8 g/dL 1.5-4.5 A/G Ratio 1.5 1.1-2.5 Bilirubin, Total 0.5 mg/dL 0.0-1.2 Alkaline Phosphatase, S 63 IU/L 39-117 AST (SGOT) 19 IU/L 0-40 ALT (SGPT) 33 IU/L 0-44 Comp. Metabolic Panel (14) - 07/22/16 11:38 Glucose, Serum 92 mg/dL 65-99 BUN 11 mg/dL 6-24 Creatinine, Serum 0.97 mg/dL 0.76-1.27 eGFR If NonAfricn Am 94 mL/min/1.73 >59 eGFR If Africn Am 109 mL/min/1.73 >59 BUN/Creatinine Ratio 11 9-20 Sodium, Serum 142 mmol/L 134-144 Potassium, Serum 4.5 mmol/L 3.5-5.2 Chloride, Serum 104 mmol/L 96-106 Carbon Dioxide, Total 24 mmol/L 18-29 Calcium, Serum 9.3 mg/dL 8.7-10.2 Protein, Total, Serum 7.2 g/dL 6.0-8.5 Albumin, Serum 4.3 g/dL 3.5-5.5 Globulin, Total 2.9 g/dL 1.5-4.5 A/G Ratio 1.5 1.1-2.5 Bilirubin, Total 0.4 mg/dL 0.0-1.2 Alkaline Phosphatase, S 67 IU/L 39-117 AST (SGOT) 34 IU/L 0-40 ALT (SGPT) 43 IU/L 0-44 TSH - 07/22/16 11:38 TSH 3.260 uIU/mL 0.450-4.500 CBC With Differential/Platelet - 12/21/16 08:27 WBC 5.5 x10E3/uL 3.4-10.8 RBC 4.96 x10E6/uL 4.14-5.80 Hemoglobin 14.7 g/dL 12.6-17.7 Hematocrit 43.5 % 37.5-51.0 MCV 88 fL 79-97 MCH 29.6 pg 26.6-33.0 MCHC 33.8 g/dL 31.5-35.7 RDW 13.9 % 12.3-15.4 Platelets 294 x10E3/uL 150-379 Neutrophils 48 % Lymphs 34 % Monocytes 8 % Eos 7 % Basos 1 % Neutrophils (Absolute) 2.7 x10E3/uL 1.4-7.0 Lymphs (Absolute) 1.9 x10E3/uL 0.7-3.1 Monocytes(Absolute) 0.4 x10E3/uL 0.1-0.9 Eos (Absolute) 0.4 x10E3/uL 0.0-0.4 Baso (Absolute) 0.0 x10E3/uL 0.0-0.2 Immature Granulocytes 2 % Immature Grans (Abs) 0.1 x10E3/uL 0.0-0.1 Comp. Metabolic Panel (14) - 12/21/16 08:27 Glucose, Serum 96 mg/dL 65-99 BUN 11 mg/dL 6-24 Creatinine, Serum 0.92 mg/dL 0.76-1.27 eGFR If NonAfricn Am 100 mL/min/1.73 >59 eGFR If Africn Am 116 mL/min/1.73 >59 BUN/Creatinine Ratio 12 9-20 Sodium, Serum 140 mmol/L 134-144 Potassium, Serum 4.5 mmol/L 3.5-5.2 Chloride, Serum 104 mmol/L 96-106 Carbon Dioxide, Total 21 mmol/L 18-29 Calcium, Serum 9.1 mg/dL 8.7-10.2 Protein, Total, Serum 7.0 g/dL 6.0-8.5 Albumin, Serum 4.0 g/dL 3.5-5.5 Globulin, Total 3.0 g/dL 1.5-4.5 A/G Ratio 1.3 1.2-2.2 Bilirubin, Total 0.4 mg/dL 0.0-1.2 Alkaline Phosphatase, S 59 IU/L 39-117 AST (SGOT) 19 IU/L 0-40 ALT (SGPT) 38 IU/L 0-44 Lipid Panel - 12/21/16 08:27 Cholesterol, Total 158 mg/dL 100-199 Triglycerides 87 mg/dL 0-149 HDL Cholesterol 43 mg/dL >39 VLDL Cholesterol Too 17 mg/dL 5-40 LDL Cholesterol Calc 98 mg/dL 0-99 TSH - 12/21/16 08:27 TSH 2.660 uIU/mL 0.450-4.500 Prostate-Specific Ag, Serum - 12/21/16 08:27 Prostate Specific Ag, Serum 0.7 ng/mL 0.0-4.0 DIFFERENTIAL, MANUAL - 09/21/17 16:09 ABSOLUTE NEUTROPHILS 4278 cells/uL 2135-1304 ABSOLUTE MONOCYTES 483 cells/uL 200-950 ABSOLUTE EOSINOPHILS 138 cells/uL 15-500 ABSOLUTE BASOPHILS 69 cells/uL 0-200 NEUTROPHILS 62.0 % NRG LYMPHOCYTES 28.0 % NRG MONOCYTES 7.0 % NRG EOSINOPHILS 2.0 % NRG BASOPHILS 1.0 % NRG ABSOLUTE LYMPHOCYTES 1932 cells/uL 850-3900 PLATELET ESTIMATION ADEQUATE ADEQUATE TSH - 03/24/18 13:31 TSH 3.03 mIU/L 0.40-4.50 LIPID PANEL - 03/31/18 08:21 CHOLESTEROL, TOTAL 165 mg/dL <200 HDL CHOLESTEROL 44 mg/dL >40 TRIGLYCERIDES 87 mg/dL <150 LDL-CHOLESTEROL 103 mg/dL (calc) NRG CHOL/HDLC RATIO 3.8 (calc) <5.0 NON HDL CHOLESTEROL 121 mg/dL (calc) <130 Encounters ACCT No. Visit Date/Time Discharge Status Pt. Type Provider Facility Loc./Unit Complaint [id number] 04/06/2014 10:29:00 04/06/2014 23:59:59 CLS Outpatient EWA ANDREWS APRN [id number] 12/15/2013 09:18:00 12/15/2013 23:59:59 CLS Outpatient EWA ANDREWS APRN [id number] 07/27/2013 14:37:00 07/27/2013 23:59:59 CLS Outpatient EWA ANDREWS APRN [id number] 12/22/2016 10:10:00 Document Registration [id number] 10/24/2013 16:03:00 10/24/2013 23:59:59 CLS Outpatient [id number] 04/14/2018 11:35:00 04/14/2018 23:59:59 CLS Outpatient JODY GONZALEZ MD [facility] CARD RUQ ABD PAIN [id number] 03/29/2018 07:16:00 03/29/2018 23:59:59 CLS Outpatient JODY GONZALEZ MD [facility] RAD RUQ ABD PAIN [id number] 05/19/2018 09:31:00 Document Registration [id number] 05/18/2018 15:52:00 ACT Outpatient JODY GONZALEZ MD [facility] PREOP RECTAL FISTULA [id number] 07/07/2016 08:35:00 Document Registration [id number] 07/23/2016 10:05:00 Document Registration [id number] 04/24/2017 03:07:00 Document Registration [id number] 04/22/2016 13:06:00 Document Registration [id number] 11/09/2017 16:00:00 11/09/2017 23:59:59 CLS Outpatient [facility] [id number] 03/31/2018 08:20:00 Document Registration [id number] 03/24/2018 12:40:00 Document Registration [id number] 09/21/2017 15:20:00 Document Registration
--- OUTSIDE RECORDS SUMMARY | 2018-05-19 09:40 | XMS REPORT ---
Author Author CARTER STEPHENS Organization [employer] Address Unknown Phone Unavailable Care Team Providers Care Marker Shipments Name Role Phone CARTER STEPHENS CP Unavailable Allergies, Adverse Reactions, Alerts Substance Reaction Event Type N.K.D.A. Info Not Available Non Drug Allergy Problems Problem Type Condition ICD-9 Code Onset Dates Condition Status Problem Unspecified myalgia and myositis 729.1 Active Problem Other malaise and fatigue 780.79 Active Problem Screening examination for venereal disease V74.5 Active Assessment Hypothyroidism 244.9 Active Assessment Prediabetes 790.29 Active Problem Esophageal reflux 530.81 Active Problem Pain in joint, lower leg 719.46 Active Medications Medication Code System Code Instructions Start Date End Date Status Dosage Levoxyl [facility] [address]-03 25 MCG Orally Once a day March 08, 2015 1 tablet Aciphex [facility] [address]-85 20 MG Orally Once a day 1 tablet Procedures Procedure Coding System Code Date Office Visit, Est Pt., Level 3 CPT-4 58367 Apr 04, 2015 Vital Signs Date/Time: Apr 04, 2015 Temperature 97.0 F Weight 239.5 lbs Height 65 in BMI 39.85 Index Blood Pressure Diastolic 84 mmHg Blood Pressure Systolic 122 mmHg Cardiac Monitoring Heart Rate 84 bpm Results No Known Results Summary Purpose [employer] Submission
[2018-05-19] MEDS ORDERED: ceFAZolin INJECTION 1,000 MG in NS (IVPB) 50 ML IV ONE (09:45)
[2018-05-19] MEDS ORDERED: CATHETER FLUSH 10 ML SYR IV PRN (09:45)
[2018-05-19] MEDS ORDERED: LACTATED RINGERS 1,000 ML IV PRN (10:40)
[2018-05-19] MEDS ORDERED: BUPIVACAINE 0.5% 30 ML (SENSORCAINE) VIAL ONE (10:49)
[2018-05-19] MEDS ORDERED: LIDOCAINE/EPI 1%-1:200,000 (XYLOCAINE) 10 ML VIAL ONE (10:49)
[2018-05-19] MEDS ORDERED: SEVOFLURANE (ULTANE) 15 ML INHAL SOLN ONE ×2 (11:55→13:02)
[2018-05-19] MEDS ORDERED: proPOfol 200 MG/20 ML (DIPRIVAN) VIAL IV ONE (11:55)
[2018-05-19] MEDS ORDERED: ONDANSETRON 4 MG/2 ML (SDV) Z0FRAN ONE (11:55)
[2018-05-19] MEDS ORDERED: fentaNYL INJECTION 250 MCG/5 ML AMP ONE (11:55)
[2018-05-19] MEDS ORDERED: LIDOCAINE PF 2% 5 ML (XYLOCAINE) VIAL ONE (11:55)
[2018-05-19] MEDS ORDERED: DEXAMETHASONE 10 MG/ML (DECADRON) 1 ML VIAL ONE (11:55)
[2018-05-19] MEDS ORDERED: MIDAZOLAM 2 MG/2 ML (VERSED) VIAL ONE (11:55)
--- NOTE | 2018-05-19 13:16 | Progress Note-Post Operative ---
Post-Operative Progess Note Surgeon (s)/Apartment Leasing Consultant (s) Surgeon JODY GONZALEZ MD Apartment Leasing Consultant: none Pre-Operative Diagnosis perianal pain/mass/drainage Post-Operative Diagnosis anal fissure 12 o'clock Procedure & Operative Findings Date of Procedure 05/19/18 Procedure Performed/Findings anal exam under anesthesia, fissurectomy Anesthesia Type general LMA Estimated Blood Loss Estimated blood loss (mL): minimal Specimens/Packing Specimens Removed anal fissure JODY GONZALEZ MD May 19, 2018 1:16 pm
--- NOTE | 2018-05-19 13:23 | Discharge Inst-Surgical ---
D/C Lap Instructions-KIDO New, Converted, or Re-Newed RX: RX on Chart Follow Up Appt in 2 weeks Activity as tolerated remove remainder of packing with first bowel movement. sitz bath 4x/day and after every bowel movement. High Fiber Diet 25g or more per day Avoid Alcohol, Caffeine, Spicy [place] and Acid foods. Drink 64 fluid oz or more of fluids per day. Symptoms to Report: Fever over 101 degree F, Nausea/Vomiting If any problems/questions: Contact your physician or go to Emergency Room JODY GONZALEZ MD May 19, 2018 1:23 pm
[2018-05-19] MEDS ORDERED: morphine INJ 10 MG/ML 1ML (SYR OR VIAL) IVP ONE (13:30)
[2018-05-19] MEDS ORDERED: HYDROmorphone 2 MG/ML VIAL (DILAUDID) ONE (13:53)
--- NOTE | 2018-05-19 13:54 | OPERATIVE REPORT ---
DATE OF SERVICE: 05/19/2018 ATTENDING PRIMARY CARE PHYSICIAN: Grace Craft APRN. PREOPERATIVE DIAGNOSIS: Rectal bleeding, lesion at 12 o'clock position of the anus, which is tender. POSTOPERATIVE DIAGNOSIS: Posterior anal fissure. PROCEDURE: Anal exam under anesthesia and fissurectomy. SURGEON: Jody Gonzalez MD. ANESTHESIA: General laryngeal mask airway. ESTIMATED BLOOD LOSS: Minimal. FINDINGS: Posterior anal fissure with a sentinel pile indicating chronicity. DISPOSITION: The patient tolerated the procedure well. INDICATIONS: The patient is a 48-year-old male known to us. He has had issues with constipation and perineal pain in the past. He did undergo colonoscopy in 2016, found to have a stage II external and internal hemorrhoids as well as a moderate sigmoid diverticulosis. There were no polyps identified. Around late February or early March of this year, he developed red blood per rectum, which did correct on its own. He has had some issues with constipation in the past as well as currently. He did proceed with conservative management with a high fiber diet as well as a trial of nitroglycerin ointment as a smooth muscle relaxant. He reported that his symptoms had improved; however, over the past two days, he had noticed more blood in his stool as well as a hardness in the posterior aspect of the anus at the 12 o'clock position. On examination, it was difficult to ascertain if this was a fissure versus a fistula versus an abscess. DESCRIPTION OF PROCEDURE: The patient was brought to the operating room, laid supine on the table. After adequate IV pain and sedative medications and general laryngeal mask airway intubation, the patient was placed in lithotomy position and the perineum prepped and draped in standard surgical fashion. A 0.5% Marcaine was then used to proceed with a pudendal nerve block to allow for dilatation of the anus. A self-retaining speculum was then placed and the exam was performed. 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 There were no fistulous tracts or abscesses identified. We then proceeded with excision of the fissure including the top layer of the muscle using a Sonicision. We proceeded to the level of the mucosa en bloc using the Sonicision. We then proceeded with closing of the opening primarily using a 3-0 Vicryl running suture. Good hemostasis was observed. The anal canal was then covered with a hemostatic plug made out of Gelfo[place] and Surgicel. The patient tolerated the procedure well. We will instruct him to proceed with a high fiber diet with at least 30 grams of fiber per day as well as stool softeners and laxatives for now to promote very soft stools to allow the area to heal. He will also need to do Sitz baths on a q.i.d. basis as well as after every bowel movement to allow for relaxation of the anal sphincters. We will have him follow up in the office in approximately one week. Job ID: [id number] DocumentID: [id number] Dictated Date: 05/19/2018 13:34:37 Healthcare Administrator Date: 05/19/2018 13:53:21 Dictated By: JODY GONZALEZ MD MTDD
[2018-05-19] MEDS ORDERED: HYDROmorphone 2 MG/ML VIAL (DILAUDID) IV ONE (14:00)
--- NOTE | 2018-05-19 14:12 | Anesthesia-General Post-Op ---
General Patient Condition Mental Status/LOC: Same as Preop Cardiovascular: Satisfactory Nausea/Vomiting: Absent Respiratory: Satisfactory Pain: Controlled Complications: Absent Post Op Complications Complications None Follow Up Care/Instructions Patient Instructions None needed. Anesthesia/Patient Condition Patient Condition Patient is doing well, no complaints, stable vital signs, no apparent adverse anesthesia problems. No complications reported per nursing. STEVE SHIELDS CRNA May 19, 2018 14:12
[2018-05-19] MEDS: HYDROcodone/APAP 7.5 MG/325 MG (LORTAB, LORCET PLUS) TABLET PO PRN ×2 (15:24→17:40)
== END 2018-05-19 18:25 | disposition home or self-care (01) ==
LOC: SDC 09:02
PROVIDERS: ATTEND Surgery
DX: K60.2 Anal fissure, unspecified (principal); K64.9 Unspecified hemorrhoids; I10 Essential (primary) hypertension; K21.9 Gastro-esophageal reflux disease without esophagitis; Z79.899 Other long term (current) drug therapy
CPT/HCPCS: 87081; 88304